=== PATIENT | male | born 1965 | race Caucasian/White ===

== ENCOUNTER 2018-03-10 23:29 | Inpatient (IN) | payer OTHER ==
[2018-03-11] MEDS ORDERED: NACL 0.9% 3 ML SYG IV (00:30)
[2018-03-11] MEDS ORDERED: ONDANSETRON 4 MG INJ IV (00:30)
[2018-03-11] MEDS ORDERED: ACETAMINOPHEN 325 MG TAB PO (00:30)
[2018-03-11] MEDS: morphine 2 MG INJ IV ×4 (00:38→20:16)
[2018-03-11 00:42] LABS: ADD MAN DIFF? NO; HAAIG REFLEX REFLEX FILED
[2018-03-11] MEDS: SOD CHLORIDE 0.9% 1,000 ML IV (00:44)
[2018-03-11 00:49] LABS: BASOPHILS % 0.2 % (0.0-2.0); HEMATOCRIT 46.4 % (42.0-52.0); HEMOGLOBIN 14.8 g/dl (14.0-18.0); LYMPHOCYTES # 0.7 10^3/ul (0.8-2.9); LYMPHOCYTES % 6.2 % (15.0-51.0); MEAN CORPUSCULAR HEMOGLOBIN 29.4 pg (29.0-33.0); MEAN CORPUSCULAR HGB CONC 31.9 g/dl (32.0-37.0); MEAN CORPUSCULAR VOLUME 92.2 fl (82.0-101.0); MEAN PLATELET VOLUME 10.3 fl (7.4-10.4); MONOCYTE # 0.3 10^3/ul (0.3-0.9); MONOCYTES % 2.5 % (0.0-11.0); NEUTROPHIL # 9.8 10^3/ul (1.6-7.5); NEUTROPHILS % 89.6 % (39.0-77.0); PLATELET COUNT 254 10^3/UL (140-415); RED BLOOD COUNT 5.03 10^6/ul (4.70-6.10)
[2018-03-11 00:49] LABS: WHITE BLOOD COUNT 10.9 10^3/ul (4.8-10.8)
[2018-03-11 01:13] LABS: ALBUMIN 3.3 g/dl (3.3-4.9); ALBUMIN/GLOBULIN RATIO 1.83; ALKALINE PHOSPHATASE 65 IU/L (42-121); ANION GAP 10 (5-13); ASPARTATE AMINO TRANSFERASE 647 IU/L (15-46); BILIRUBIN,INDIRECT 0.6 mg/dl (0-1.1); BILIRUBIN,TOTAL 0.6 mg/dl (0.2-1.3); BLOOD UREA NITROGEN 50 mg/dl (7-20); CALCIUM 8.6 mg/dl (8.4-10.2); CARBON DIOXIDE 26 mmol/L (21-31); CHLORIDE 99 mmol/L (97-110); CREATINE KINASE 198 IU/L (23-200); CREATININE 1.59 mg/dl (0.61-1.24); Estimated GFR 46 mL/min (>60); GLUCOSE 128 mg/dl (70-220); MAGNESIUM 2.1 mg/dl (1.7-2.5); POTASSIUM 5.1 mmol/L (3.5-5.1); SODIUM 135 mmol/L (135-144); TOTAL PROTEIN 5.1 g/dl (6.1-8.1)
[2018-03-11 01:20] LABS: ALANINE AMINOTRANSFERASE 1026 IU/L (13-69)
[2018-03-11 01:24] LABS: B-TYPE NATRIURETIC PEPTIDE 6420 PG/ML (0-125); CK INDEX 5.7
[2018-03-11 01:43] LABS: HEPATITIS B SURFACE ANTIGEN NEGATIVE (NEGATIVE)
[2018-03-11 02:00] LABS: HEPATITIS B CORE ANTIBODY NEGATIVE (NEGATIVE)
[2018-03-11 02:09] LABS: HEPATITIS C VIRAL ANTIBODY REACTIVE (NEGATIVE)
[2018-03-11 02:12] LABS: HEPATITIS B SURFACE ANTIBODY NEGATIVE (NEGATIVE)
[2018-03-11 03:40] LABS: ETHANOL < 10.0 mg/dl (0-0)
[2018-03-11 08:11] LABS: ADD MAN DIFF? NO
[2018-03-11 08:20] LABS: WHITE BLOOD COUNT 8.5 10^3/ul (4.8-10.8)
[2018-03-11 08:20] LABS: ABNORMAL IP MESSAGE 1; BASOPHILS % 0.1 % (0.0-2.0); HEMATOCRIT 44.9 % (42.0-52.0); HEMOGLOBIN 14.2 g/dl (14.0-18.0); LYMPHOCYTES # 0.6 10^3/ul (0.8-2.9); LYMPHOCYTES % 6.7 % (15.0-51.0); MEAN CORPUSCULAR HEMOGLOBIN 29.3 pg (29.0-33.0); MEAN CORPUSCULAR HGB CONC 31.6 g/dl (32.0-37.0); MEAN CORPUSCULAR VOLUME 92.8 fl (82.0-101.0); MEAN PLATELET VOLUME 10.4 fl (7.4-10.4); MONOCYTE # 0.3 10^3/ul (0.3-0.9); MONOCYTES % 3.5 % (0.0-11.0); NEUTROPHIL # 7.5 10^3/ul (1.6-7.5); NEUTROPHILS % 88.5 % (39.0-77.0); PLATELET COUNT 235 10^3/UL (140-415); POSITIVE DIFF @See below; RED BLOOD COUNT 4.84 10^6/ul (4.70-6.10)
[2018-03-11 08:46] LABS: ALANINE AMINOTRANSFERASE 877 IU/L (13-69); ALBUMIN 3.1 g/dl (3.3-4.9); ALBUMIN/GLOBULIN RATIO 1.63; ALKALINE PHOSPHATASE 66 IU/L (42-121); ANION GAP 9 (5-13); ASPARTATE AMINO TRANSFERASE 433 IU/L (15-46); BILIRUBIN,INDIRECT 0.7 mg/dl (0-1.1); BILIRUBIN,TOTAL 0.7 mg/dl (0.2-1.3); BLOOD UREA NITROGEN 48 mg/dl (7-20); CALCIUM 8.5 mg/dl (8.4-10.2); CARBON DIOXIDE 28 mmol/L (21-31); CHLORIDE 99 mmol/L (97-110); CREATININE 1.57 mg/dl (0.61-1.24); Estimated GFR 47 mL/min (>60); GLUCOSE 128 mg/dl (70-220); POTASSIUM 5.1 mmol/L (3.5-5.1); SODIUM 136 mmol/L (135-144)
[2018-03-11] MEDS: CEFTRIAXONE 2 GM/50 ML (PMX) 50 ML IVPB (09:28)
[2018-03-11] MEDS: FUROSEMIDE 40 MG INJ IV ×4 (09:30→20:15)
[2018-03-11 09:37] LABS: BARBITURATES Negative (NEGATIVE); BENZODIAZEPINES Negative (NEGATIVE); CANNABINOIDS Negative (NEGATIVE); COCAINE Negative (NEGATIVE); OPIATES Positive (NEGATIVE)
[2018-03-11 09:43] LABS: AMPHETAMINE/METHAMPHETAMINE POSITIVE (NEGATIVE)
[2018-03-11] MEDS ORDERED: ALBUTEROL/IPRATROPIUM (NEB) 3 ML AMP HHN (10:00)
[2018-03-11 11:09] LABS: HEMOGLOBIN A1C 5.6 % (0-5.9)
[2018-03-11 11:20] LABS: CREATINE KINASE 141 IU/L (23-200)
[2018-03-11 11:32] LABS: CK INDEX 6.8; TROPONIN-I 0.045 ng/ml (0.000-0.120)
[2018-03-11 11:34] LABS: INR 1.35; PROTIME 16.9 Sec (11.9-14.9); PT RATIO 1.3
[2018-03-11 11:35] LABS: PARTIAL THROMBOPLASTIN TIME 27.5 Sec (23.0-35.0)
[2018-03-11 11:51] LABS: CK-MB 9.54 ng/ml (0.0-2.4)
[2018-03-11] MEDS ORDERED: FUROSEMIDE 40 MG INJ IV (14:00)
[2018-03-11] MEDS: ALBUTEROL/IPRATROPIUM (NEB) 3 ML AMP HHN ×2 (14:07→20:35)
[2018-03-11] MEDS ORDERED: NICOTINE (14 MG/24 HR) PATCH TRANSDERM (15:00)
[2018-03-11] MEDS: NICOTINE (7 MG/24 HR) PATCH TRANSDERM (16:47)
[2018-03-11] MEDS ORDERED: LORAZEPAM 2 MG INJ IM (20:30)
[2018-03-12] MEDS: morphine 2 MG INJ IV ×3 (04:07→22:17)
[2018-03-12] MEDS: CEFTRIAXONE 2 GM/50 ML (PMX) 50 ML IVPB (05:32)
[2018-03-12] MEDS: FUROSEMIDE 40 MG INJ IV ×3 (05:34→22:17)
[2018-03-12 07:08] LABS: ADD MAN DIFF? NO
[2018-03-12 07:19] LABS: BASOPHILS % 0.1 % (0.0-2.0); EOSINOPHILS % 0.2 % (0.0-7.0); HEMATOCRIT 46.1 % (42.0-52.0); HEMOGLOBIN 14.2 g/dl (14.0-18.0); LYMPHOCYTES # 1.2 10^3/ul (0.8-2.9); LYMPHOCYTES % 7.1 % (15.0-51.0); MEAN CORPUSCULAR HEMOGLOBIN 28.6 pg (29.0-33.0); MEAN CORPUSCULAR HGB CONC 30.8 g/dl (32.0-37.0); MEAN CORPUSCULAR VOLUME 92.9 fl (82.0-101.0); MEAN PLATELET VOLUME 10.6 fl (7.4-10.4); MONOCYTE # 1.4 10^3/ul (0.3-0.9); MONOCYTES % 8.1 % (0.0-11.0); NEUTROPHIL # 14.1 10^3/ul (1.6-7.5); NEUTROPHILS % 83.4 % (39.0-77.0); PLATELET COUNT 257 10^3/UL (140-415); RED BLOOD COUNT 4.96 10^6/ul (4.70-6.10); RED CELL DISTRIBUTION WIDTH 13.2 % (11.5-14.5)
[2018-03-12 07:19] LABS: WHITE BLOOD COUNT 16.9 10^3/ul (4.8-10.8)
[2018-03-12] MEDS: ALBUTEROL/IPRATROPIUM (NEB) 3 ML AMP HHN ×3 (07:21→19:43)
[2018-03-12 07:28] LABS: HEMOGLOBIN A1C 5.7 % (0-5.9)
[2018-03-12 07:32] LABS: AMMONIA 18 umol/l (9-30)
[2018-03-12 07:33] LABS: ALANINE AMINOTRANSFERASE 648 IU/L (13-69); ALBUMIN 3.5 g/dl (3.3-4.9); ALBUMIN/GLOBULIN RATIO 1.66; ALKALINE PHOSPHATASE 109 IU/L (42-121); ANION GAP 10 (5-13); ASPARTATE AMINO TRANSFERASE 171 IU/L (15-46); BILIRUBIN,INDIRECT 0.3 mg/dl (0-1.1); BILIRUBIN,TOTAL 0.3 mg/dl (0.2-1.3); BLOOD UREA NITROGEN 46 mg/dl (7-20); CALCIUM 8.8 mg/dl (8.4-10.2); CARBON DIOXIDE 35 mmol/L (21-31); CHLORIDE 96 mmol/L (97-110); CREATININE 1.46 mg/dl (0.61-1.24); Estimated GFR 51 mL/min (>60); GLUCOSE 120 mg/dl (70-220); POTASSIUM 4.1 mmol/L (3.5-5.1); SODIUM 141 mmol/L (135-144); TOTAL PROTEIN 5.6 g/dl (6.1-8.1)
[2018-03-12 07:34] LABS: CHOL/HDL RATIO 4.8 RATIO; HDL CHOLESTEROL 27 mg/dl (28-71); LDL CHOLESTEROL,CALCULATED 83 mg/dl; TRIGLYCERIDES 103 mg/dl (0-149)
[2018-03-12 07:34] LABS: CHOLESTEROL 131 mg/dl (100-200)
[2018-03-12 07:41] LABS: PHOSPHORUS 3.7 mg/dl (2.5-4.9)
[2018-03-12 07:41] LABS: MAGNESIUM 1.9 mg/dl (1.7-2.5)
[2018-03-12] MEDS: NICOTINE (7 MG/24 HR) PATCH TRANSDERM (08:30)
[2018-03-12 16:41] LABS: ADD UMIC NO; UR ASCORBIC ACID NEGATIVE (NEGATIVE); UR BILIRUBIN (Dip) NEGATIVE (NEGATIVE); UR BLOOD (Dip) NEGATIVE (NEGATIVE); UR CLARITY CLEAR (CLEAR); UR COLOR COLORLESS (YELLOW); UR GLUCOSE (Dip) NEGATIVE (NEGATIVE); UR KETONES (Dip) NEGATIVE (NEGATIVE); UR LEUKOCYTE ESTERASE (Dip) NEGATIVE Leu/ul (NEGATIVE); UR NITRITE (Dip) NEGATIVE (NEGATIVE); UR SPECIFIC GRAVITY (Dip) 1.005 (1.003-1.030); UR TOTAL PROTEIN (Dip) NEGATIVE (NEGATIVE); UR UROBILINOGEN (Dip) 1+ mg/dL (NEGATIVE)
[2018-03-13 01:45] LABS: ANION GAP 10 (5-13); BLOOD UREA NITROGEN 41 mg/dl (7-20); CALCIUM 8.5 mg/dl (8.4-10.2); CARBON DIOXIDE 34 mmol/L (21-31); CHLORIDE 95 mmol/L (97-110); CREATININE 1.27 mg/dl (0.61-1.24); Estimated GFR > 60 mL/min (>60); GLUCOSE 161 mg/dl (70-220); MAGNESIUM 1.6 mg/dl (1.7-2.5); POTASSIUM 3.8 mmol/L (3.5-5.1); SODIUM 139 mmol/L (135-144)
[2018-03-13] MEDS: POTASSIUM CHLORIDE (SR) 20 MEQ TAB PO (02:32)
[2018-03-13] MEDS: MAGNESIUM SULFATE 3 GM in DEXTROSE 5% 100 ML IVPB (02:43)
[2018-03-13] MEDS: morphine 2 MG INJ IV ×2 (04:11→11:26)
[2018-03-13 06:27] LABS: ADD MAN DIFF? NO; EOSINOPHILS # 0.2 10^3/ul (0.0-0.5); EOSINOPHILS % 1.4 % (0.0-7.0); HEMATOCRIT 44.1 % (42.0-52.0); HEMOGLOBIN 13.7 g/dl (14.0-18.0); LYMPHOCYTES # 2.1 10^3/ul (0.8-2.9); LYMPHOCYTES % 18.7 % (15.0-51.0); MEAN CORPUSCULAR HEMOGLOBIN 29.2 pg (29.0-33.0); MEAN CORPUSCULAR HGB CONC 31.1 g/dl (32.0-37.0); MEAN PLATELET VOLUME 10.4 fl (7.4-10.4); MONOCYTE # 0.9 10^3/ul (0.3-0.9); NEUTROPHIL # 7.9 10^3/ul (1.6-7.5); NEUTROPHILS % 70.9 % (39.0-77.0); PLATELET COUNT 208 10^3/UL (140-415); RED BLOOD COUNT 4.69 10^6/ul (4.70-6.10); RED CELL DISTRIBUTION WIDTH 13.4 % (11.5-14.5)
[2018-03-13 06:27] LABS: WHITE BLOOD COUNT 11.2 10^3/ul (4.8-10.8)
[2018-03-13 06:50] LABS: ALANINE AMINOTRANSFERASE 436 IU/L (13-69); ALBUMIN 3.3 g/dl (3.3-4.9); ALBUMIN/GLOBULIN RATIO 1.73; ALKALINE PHOSPHATASE 135 IU/L (42-121); ANION GAP 9 (5-13); ASPARTATE AMINO TRANSFERASE 94 IU/L (15-46); BILIRUBIN,INDIRECT 0.3 mg/dl (0-1.1); BILIRUBIN,TOTAL 0.3 mg/dl (0.2-1.3); BLOOD UREA NITROGEN 40 mg/dl (7-20); CALCIUM 8.3 mg/dl (8.4-10.2); CARBON DIOXIDE 33 mmol/L (21-31); CHLORIDE 98 mmol/L (97-110); CREATININE 1.17 mg/dl (0.61-1.24); Estimated GFR > 60 mL/min (>60); GLUCOSE 142 mg/dl (70-220); POTASSIUM 3.7 mmol/L (3.5-5.1); SODIUM 140 mmol/L (135-144); TOTAL PROTEIN 5.2 g/dl (6.1-8.1)
[2018-03-13 06:51] LABS: PHOSPHORUS 3.1 mg/dl (2.5-4.9)
[2018-03-13] MEDS: FUROSEMIDE 40 MG INJ IV (07:04)
[2018-03-13] MEDS: CEFTRIAXONE 2 GM/50 ML (PMX) 50 ML IVPB (07:05)
[2018-03-13] MEDS: ALBUTEROL/IPRATROPIUM (NEB) 3 ML AMP HHN ×2 (08:56→14:00)
[2018-03-13] MEDS: NICOTINE (7 MG/24 HR) PATCH TRANSDERM (09:32)
[2018-03-13] MEDS: ENALAPRIL 2.5 MG TAB PO (11:00)
== END 2018-03-13 14:40 | disposition home or self-care (01) | DRG 291 ==
LOC: TEL 23:29
DX: I13.0 Hypertensive heart and chronic kidney disease with heart failure and stage 1 through stage 4 chronic kidney disease, or unspecified chronic kidney disease (principal); J96.01 Acute respiratory failure with hypoxia; I50.43 Acute on chronic combined systolic (congestive) and diastolic (congestive) heart failure; R18.8 Other ascites; N17.9 Acute kidney failure, unspecified; J44.9 Chronic obstructive pulmonary disease, unspecified; I42.7 Cardiomyopathy due to drug and external agent; B19.20 Unspecified viral hepatitis C without hepatic coma; R74.0 Nonspecific elevation of levels of transaminase and lactic acid dehydrogenase [LDH]; E66.9 Obesity, unspecified; Z68.35 Body mass index [BMI] 35.0-35.9, adult; Z72.0 Tobacco use; F15.10 Other stimulant abuse, uncomplicated; K74.60 Unspecified cirrhosis of liver; I27.20 Pulmonary hypertension, unspecified; N18.9 Chronic kidney disease, unspecified
CPT/HCPCS: 71045; 76705; 76775; 80048; 80053; 80061; 80307; 81003; 82140; 82550; 82553; 83036; 83735; 83880; 84100; 84443; 84484; 85025; 85610; 85730; 86704; 86706; 86708; 86709; 86803; 87340; 87522; 93306; 94640; 94664

== ENCOUNTER 2018-05-27 14:28 | Inpatient (IN) | payer OTHER ==
[2018-05-27] MEDS ORDERED: NITROGLYCERIN (SL) 0.4 MG TAB SL ×2 (15:00→18:30)
[2018-05-27 15:09] LABS: ADD MAN DIFF? NO
[2018-05-27] MEDS: ASPIRIN 81 MG TAB PO (15:10)
[2018-05-27] MEDS: NITROGLYCERIN 2% 1 GM OINT PKT TD (15:10)
[2018-05-27 15:11] LABS: BASOPHIL # 0.1 10^3/ul (0.0-0.1); BASOPHILS % 0.5 % (0.0-2.0); EOSINOPHILS # 0.2 10^3/ul (0.0-0.5); EOSINOPHILS % 1.8 % (0.0-7.0); HEMATOCRIT 48.3 % (42.0-52.0); HEMOGLOBIN 14.7 g/dl (14.0-18.0); LYMPHOCYTES # 1.8 10^3/ul (0.8-2.9); LYMPHOCYTES % 19.1 % (15.0-51.0); MEAN CORPUSCULAR HEMOGLOBIN 25.9 pg (29.0-33.0); MEAN CORPUSCULAR HGB CONC 30.4 g/dl (32.0-37.0); MEAN PLATELET VOLUME 10.5 fl (7.4-10.4); MONOCYTE # 1.1 10^3/ul (0.3-0.9); NEUTROPHIL # 6.4 10^3/ul (1.6-7.5); NEUTROPHILS % 67.1 % (39.0-77.0); PLATELET COUNT 289 10^3/UL (140-415); RED BLOOD COUNT 5.68 10^6/ul (4.70-6.10); RED CELL DISTRIBUTION WIDTH 14.6 % (11.5-14.5)
[2018-05-27 15:11] LABS: WHITE BLOOD COUNT 9.5 10^3/ul (4.8-10.8)
[2018-05-27] MEDS: FUROSEMIDE 40 MG INJ IV (15:11)
[2018-05-27 15:30] LABS: ANION GAP 13 (5-13); BLOOD UREA NITROGEN 41 mg/dl (7-20); CALCIUM 9.5 mg/dl (8.4-10.2); CARBON DIOXIDE 23 mmol/L (21-31); CHLORIDE 99 mmol/L (97-110); CREATININE 1.59 mg/dl (0.61-1.24); Estimated GFR 46 mL/min (>60); GLUCOSE 112 mg/dl (70-220); POTASSIUM 4.3 mmol/L (3.5-5.1); SODIUM 135 mmol/L (135-144)
[2018-05-27 15:41] LABS: TROPONIN-I 0.062 ng/ml (0.000-0.120)
[2018-05-27] MEDS: CEFEPIME 1GM/50 ML (PMX) 50 ML IVPB (16:17)
[2018-05-27] MEDS ORDERED: ACETAMINOPHEN 325 MG TAB PO ×2 (16:30→18:30)
[2018-05-27] MEDS ORDERED: ONDANSETRON 4 MG INJ IV ×2 (16:30→18:30)
[2018-05-27] MEDS: VANCOMYCIN 1 GM (PMX) 250 ML IVPB (17:22)
[2018-05-27] MEDS ORDERED: DOCUSATE SODIUM 100 MG CAP PO (18:30)
[2018-05-27] MEDS ORDERED: hydrALAzine 20 MG INJ IV (18:30)
[2018-05-27] MEDS ORDERED: MAGNESIUM HYDROXIDE 30ML CUP PO (18:30)
[2018-05-27] MEDS ORDERED: NACL 0.9% 3 ML SYG IV (18:30)
[2018-05-27] MEDS ORDERED: ALBUTEROL/IPRATROPIUM (NEB) 3 ML AMP HHN (18:30)
[2018-05-27 18:56] LABS: LACTIC ACID 2.4 mmol/L (0.5-2.0)
[2018-05-27] MEDS: SPIRONOLACTONE 50 MG TAB PO (20:33)
[2018-05-27] MEDS: LEVOFLOXACIN 750MG/D5W (PMX) 150 ML IVPB (20:33)
[2018-05-27] MEDS: morphine 2 MG INJ IV (20:33)
[2018-05-28] MEDS: morphine 2 MG INJ IV ×5 (00:50→23:53)
[2018-05-28 01:16] LABS: LACTIC ACID 1.3 mmol/L (0.5-2.0)
[2018-05-28] MEDS: ALBUTEROL HFA 8 GM INHALER INH ×5 (01:24→23:05)
[2018-05-28 01:44] LABS: CREATINE KINASE 282 IU/L (23-200)
[2018-05-28 01:57] LABS: CK INDEX 2.1; TROPONIN-I 0.065 ng/ml (0.000-0.120)
[2018-05-28] MEDS: PANTOPRAZOLE (EC) 40 MG TAB PO (06:21)
[2018-05-28] MEDS: FUROSEMIDE 40 MG INJ IV ×2 (06:27→17:14)
[2018-05-28 06:42] LABS: ADD MAN DIFF? NO
[2018-05-28 06:48] LABS: BASOPHILS % 0.6 % (0.0-2.0); EOSINOPHILS # 0.2 10^3/ul (0.0-0.5); EOSINOPHILS % 2.6 % (0.0-7.0); HEMATOCRIT 47.1 % (42.0-52.0); HEMOGLOBIN 14.3 g/dl (14.0-18.0); LYMPHOCYTES # 1.5 10^3/ul (0.8-2.9); LYMPHOCYTES % 21.4 % (15.0-51.0); MEAN CORPUSCULAR HEMOGLOBIN 25.4 pg (29.0-33.0); MEAN CORPUSCULAR HGB CONC 30.4 g/dl (32.0-37.0); MEAN CORPUSCULAR VOLUME 83.8 fl (82.0-101.0); MEAN PLATELET VOLUME 10.1 fl (7.4-10.4); MONOCYTE # 0.7 10^3/ul (0.3-0.9); MONOCYTES % 9.8 % (0.0-11.0); NEUTROPHIL # 4.7 10^3/ul (1.6-7.5); NEUTROPHILS % 65.2 % (39.0-77.0); PLATELET COUNT 260 10^3/UL (140-415); RED BLOOD COUNT 5.62 10^6/ul (4.70-6.10); RED CELL DISTRIBUTION WIDTH 14.5 % (11.5-14.5)
[2018-05-28 06:48] LABS: WHITE BLOOD COUNT 7.2 10^3/ul (4.8-10.8)
[2018-05-28 07:04] LABS: INR 1.33; PROTIME 16.6 Sec (11.9-14.9); PT RATIO 1.3
[2018-05-28 07:54] LABS: LACTIC ACID 1.3 mmol/L (0.5-2.0)
[2018-05-28 07:56] LABS: CREATINE KINASE 205 IU/L (23-200)
[2018-05-28 08:02] LABS: CK INDEX 3.5; TROPONIN-I 0.065 ng/ml (0.000-0.120)
[2018-05-28 08:22] LABS: ANION GAP 11 (5-13); BLOOD UREA NITROGEN 39 mg/dl (7-20); CALCIUM 9.9 mg/dl (8.4-10.2); CARBON DIOXIDE 27 mmol/L (21-31); CHLORIDE 99 mmol/L (97-110); CREATININE 1.55 mg/dl (0.61-1.24); Estimated GFR 48 mL/min (>60); GLUCOSE 98 mg/dl (70-220); POTASSIUM 4.3 mmol/L (3.5-5.1); SODIUM 137 mmol/L (135-144)
[2018-05-28 09:26] LABS: CHOL/HDL RATIO 6.5 RATIO; HDL CHOLESTEROL 15 mg/dl (28-71); LDL CHOLESTEROL,CALCULATED 66 mg/dl; TRIGLYCERIDES 86 mg/dl (0-149)
[2018-05-28 09:26] LABS: CHOLESTEROL 98 mg/dl (100-200)
[2018-05-28] MEDS: SPIRONOLACTONE 50 MG TAB PO ×2 (09:27→20:31)
[2018-05-28] MEDS: ASPIRIN (EC) 325 MG TAB PO (09:27)
[2018-05-28] MEDS: LORAZEPAM 2 MG INJ IV ×2 (10:29→23:53)
[2018-05-28] MEDS: HYDROCODONE/APAP (5/325) TAB PO (11:21)
[2018-05-28] MEDS: DIGOXIN 500 MCG INJ IV (15:52)
[2018-05-28] MEDS: LEVOFLOXACIN 750MG/D5W (PMX) 150 ML IVPB (20:31)
[2018-05-29] MEDS: FUROSEMIDE 40 MG INJ IV ×2 (06:16→17:46)
[2018-05-29] MEDS: PANTOPRAZOLE (EC) 40 MG TAB PO (06:16)
[2018-05-29] MEDS: ALBUTEROL HFA 8 GM INHALER INH ×3 (06:16→17:46)
[2018-05-29] MEDS: morphine 2 MG INJ IV ×3 (06:21→21:06)
[2018-05-29 06:28] LABS: ADD MAN DIFF? NO
[2018-05-29 06:43] LABS: BASOPHILS % 0.4 % (0.0-2.0); EOSINOPHILS # 0.2 10^3/ul (0.0-0.5); EOSINOPHILS % 2.5 % (0.0-7.0); HEMATOCRIT 43.6 % (42.0-52.0); HEMOGLOBIN 13.2 g/dl (14.0-18.0); LYMPHOCYTES % 15.3 % (15.0-51.0); MEAN CORPUSCULAR HEMOGLOBIN 25.5 pg (29.0-33.0); MEAN CORPUSCULAR HGB CONC 30.3 g/dl (32.0-37.0); MEAN CORPUSCULAR VOLUME 84.3 fl (82.0-101.0); MEAN PLATELET VOLUME 10.1 fl (7.4-10.4); MONOCYTE # 0.7 10^3/ul (0.3-0.9); MONOCYTES % 10.5 % (0.0-11.0); NEUTROPHIL # 4.8 10^3/ul (1.6-7.5); NEUTROPHILS % 70.9 % (39.0-77.0); PLATELET COUNT 220 10^3/UL (140-415); RED BLOOD COUNT 5.17 10^6/ul (4.70-6.10); RED CELL DISTRIBUTION WIDTH 14.6 % (11.5-14.5)
[2018-05-29 06:43] LABS: WHITE BLOOD COUNT 6.8 10^3/ul (4.8-10.8)
[2018-05-29 07:08] LABS: LACTIC ACID 1.5 mmol/L (0.5-2.0)
[2018-05-29 07:15] LABS: B-TYPE NATRIURETIC PEPTIDE 5790 PG/ML (0-125)
[2018-05-29 07:16] LABS: ALANINE AMINOTRANSFERASE 44 IU/L (13-69); ALBUMIN 3.7 g/dl (3.3-4.9); ALBUMIN/GLOBULIN RATIO 1.32; ALKALINE PHOSPHATASE 88 IU/L (42-121); ANION GAP 15 (5-13); ASPARTATE AMINO TRANSFERASE 49 IU/L (15-46); BILIRUBIN,INDIRECT 0.6 mg/dl (0-1.1); BILIRUBIN,TOTAL 0.6 mg/dl (0.2-1.3); BLOOD UREA NITROGEN 37 mg/dl (7-20); CALCIUM 9.2 mg/dl (8.4-10.2); CARBON DIOXIDE 26 mmol/L (21-31); CHLORIDE 97 mmol/L (97-110); CREATININE 1.57 mg/dl (0.61-1.24); Estimated GFR 47 mL/min (>60); GLUCOSE 129 mg/dl (70-220); MAGNESIUM 1.9 mg/dl (1.7-2.5); POTASSIUM 4.3 mmol/L (3.5-5.1); SODIUM 138 mmol/L (135-144); TOTAL PROTEIN 6.5 g/dl (6.1-8.1)
[2018-05-29 07:28] LABS: FREE T4 (FREE THYROXINE) 1.72 ng/dl (0.64-1.79)
[2018-05-29] MEDS: SPIRONOLACTONE 50 MG TAB PO ×2 (08:29→21:00)
[2018-05-29] MEDS: ASPIRIN (EC) 325 MG TAB PO (08:29)
[2018-05-29] MEDS: DIGOXIN 0.125 MG TAB PO (12:23)
[2018-05-29] MEDS: LORAZEPAM 2 MG INJ IV (21:05)
[2018-05-29] MEDS: LEVOFLOXACIN 750MG/D5W (PMX) 150 ML IVPB (21:21)
[2018-05-29 22:59] LABS: ALBUMIN 3.7 g/dl (3.3-4.9); ANION GAP 15 (5-13); BLOOD UREA NITROGEN 35 mg/dl (7-20); CALCIUM 9.3 mg/dl (8.4-10.2); CARBON DIOXIDE 26 mmol/L (21-31); CHLORIDE 95 mmol/L (97-110); CREATINE KINASE 102 IU/L (23-200); CREATININE 1.45 mg/dl (0.61-1.24); GLUCOSE 122 mg/dl (70-220); MAGNESIUM 1.7 mg/dl (1.7-2.5); POTASSIUM 4.5 mmol/L (3.5-5.1); SODIUM 136 mmol/L (135-144)
[2018-05-30] MEDS: ALBUTEROL HFA 8 GM INHALER INH ×4 (00:03→18:19)
[2018-05-30] MEDS: LORAZEPAM 2 MG INJ IV ×2 (04:25→21:23)
[2018-05-30] MEDS: morphine 2 MG INJ IV ×4 (04:26→21:22)
[2018-05-30] MEDS: FUROSEMIDE 40 MG INJ IV (06:07)
[2018-05-30] MEDS: PANTOPRAZOLE (EC) 40 MG TAB PO (06:08)
[2018-05-30 07:44] LABS: ADD MAN DIFF? NO
[2018-05-30 07:52] LABS: WHITE BLOOD COUNT 7.8 10^3/ul (4.8-10.8)
[2018-05-30 07:53] LABS: BASOPHILS % 0.3 % (0.0-2.0); EOSINOPHILS # 0.2 10^3/ul (0.0-0.5); EOSINOPHILS % 2.1 % (0.0-7.0); HEMATOCRIT 44.2 % (42.0-52.0); HEMOGLOBIN 13.3 g/dl (14.0-18.0); LYMPHOCYTES % 12.5 % (15.0-51.0); MEAN CORPUSCULAR HEMOGLOBIN 25.6 pg (29.0-33.0); MEAN CORPUSCULAR HGB CONC 30.1 g/dl (32.0-37.0); MEAN CORPUSCULAR VOLUME 85.2 fl (82.0-101.0); MEAN PLATELET VOLUME 9.9 fl (7.4-10.4); MONOCYTE # 0.6 10^3/ul (0.3-0.9); MONOCYTES % 8.2 % (0.0-11.0); NEUTROPHILS % 76.5 % (39.0-77.0); PLATELET COUNT 217 10^3/UL (140-415); RED BLOOD COUNT 5.19 10^6/ul (4.70-6.10); RED CELL DISTRIBUTION WIDTH 14.9 % (11.5-14.5)
[2018-05-30 08:12] LABS: ANION GAP 14 (5-13); BLOOD UREA NITROGEN 34 mg/dl (7-20); CALCIUM 9.3 mg/dl (8.4-10.2); CARBON DIOXIDE 29 mmol/L (21-31); CHLORIDE 95 mmol/L (97-110); CREATININE 1.52 mg/dl (0.61-1.24); Estimated GFR 49 mL/min (>60); GLUCOSE 108 mg/dl (70-220); POTASSIUM 4.3 mmol/L (3.5-5.1); SODIUM 138 mmol/L (135-144)
[2018-05-30] MEDS: ASPIRIN (EC) 325 MG TAB PO (10:04)
[2018-05-30] MEDS: SPIRONOLACTONE 50 MG TAB PO ×2 (10:04→21:10)
[2018-05-30] MEDS: LISINOPRIL 5 MG TAB PO (10:05)
[2018-05-30] MEDS: BUMETANIDE 3 MG in DEXTROSE 5% 18 ML IV (10:05)
[2018-05-30] MEDS: DIGOXIN 0.125 MG TAB PO (14:02)
[2018-05-30] MEDS: LEVOFLOXACIN 750MG/D5W (PMX) 150 ML IVPB (21:09)
[2018-05-31] MEDS: ALBUTEROL HFA 8 GM INHALER INH ×3 (02:10→08:26)
[2018-05-31] MEDS: morphine 2 MG INJ IV ×2 (02:24→08:25)
[2018-05-31] MEDS: PANTOPRAZOLE (EC) 40 MG TAB PO (05:30)
[2018-05-31] MEDS: ASPIRIN (EC) 325 MG TAB PO (08:25)
[2018-05-31] MEDS: LISINOPRIL 5 MG TAB PO (08:25)
[2018-05-31] MEDS: SPIRONOLACTONE 50 MG TAB PO (08:25)
[2018-05-31 08:30] LABS: ADD MAN DIFF? NO
[2018-05-31 08:40] LABS: BASOPHILS % 0.5 % (0.0-2.0); EOSINOPHILS # 0.2 10^3/ul (0.0-0.5); EOSINOPHILS % 3.1 % (0.0-7.0); HEMATOCRIT 42.4 % (42.0-52.0); LYMPHOCYTES % 13.4 % (15.0-51.0); MEAN CORPUSCULAR HEMOGLOBIN 25.8 pg (29.0-33.0); MEAN CORPUSCULAR HGB CONC 30.7 g/dl (32.0-37.0); MEAN CORPUSCULAR VOLUME 84.1 fl (82.0-101.0); MEAN PLATELET VOLUME 10.2 fl (7.4-10.4); MONOCYTES % 12.4 % (0.0-11.0); NEUTROPHIL # 5.4 10^3/ul (1.6-7.5); NEUTROPHILS % 70.1 % (39.0-77.0); PLATELET COUNT 213 10^3/UL (140-415); RED BLOOD COUNT 5.04 10^6/ul (4.70-6.10)
[2018-05-31 08:40] LABS: WHITE BLOOD COUNT 7.7 10^3/ul (4.8-10.8)
[2018-05-31 09:07] LABS: ANION GAP 15 (5-13); BLOOD UREA NITROGEN 33 mg/dl (7-20); CALCIUM 9.2 mg/dl (8.4-10.2); CARBON DIOXIDE 28 mmol/L (21-31); CHLORIDE 93 mmol/L (97-110); CREATININE 1.28 mg/dl (0.61-1.24); Estimated GFR 59 mL/min (>60); GLUCOSE 95 mg/dl (70-220); POTASSIUM 4.5 mmol/L (3.5-5.1); SODIUM 136 mmol/L (135-144)
== END 2018-05-31 13:47 | disposition home or self-care (01) | DRG 291 ==
LOC: TEL 05-29 21:00 → E/R 14:28 → TEL 16:29
DX: I11.0 Hypertensive heart disease with heart failure (principal); J18.9 Pneumonia, unspecified organism; I50.23 Acute on chronic systolic (congestive) heart failure; K74.60 Unspecified cirrhosis of liver; R19.00 Intra-abdominal and pelvic swelling, mass and lump, unspecified site; Z72.0 Tobacco use; R07.9 Chest pain, unspecified; B19.20 Unspecified viral hepatitis C without hepatic coma; F15.10 Other stimulant abuse, uncomplicated; Z91.19 Patient's noncompliance with other medical treatment and regimen; E78.5 Hyperlipidemia, unspecified
CPT/HCPCS: 36415; 71045; 76705; 76870; 80048; 80053; 80061; 80069; 82550; 82553; 83036; 83605; 83735; 83880; 84100; 84439; 84443; 84484; 85025; 85610; 87040; 93005; 96374; 96375; 97161; 99291-25

== ENCOUNTER 2018-06-28 21:37 | Inpatient (IN) | payer OTHER ==
[2018-06-28 22:48] LABS: ADD MAN DIFF? NO
[2018-06-28] MEDS: ACETAMINOPHEN 325 MG TAB PO (22:50)
[2018-06-28 22:59] LABS: BASOPHILS % 0.2 % (0.0-2.0); EOSINOPHILS # 0.1 10^3/ul (0.0-0.5); EOSINOPHILS % 0.8 % (0.0-7.0); HEMATOCRIT 46.3 % (42.0-52.0); LYMPHOCYTES # 1.3 10^3/ul (0.8-2.9); MEAN CORPUSCULAR HEMOGLOBIN 24.1 pg (29.0-33.0); MEAN CORPUSCULAR HGB CONC 30.2 g/dl (32.0-37.0); MEAN CORPUSCULAR VOLUME 79.8 fl (82.0-101.0); MEAN PLATELET VOLUME 10.1 fl (7.4-10.4); MONOCYTE # 1.1 10^3/ul (0.3-0.9); MONOCYTES % 8.6 % (0.0-11.0); NEUTROPHIL # 10.5 10^3/ul (1.6-7.5); NEUTROPHILS % 79.9 % (39.0-77.0); PLATELET COUNT 164 10^3/UL (140-415); RED CELL DISTRIBUTION WIDTH 18.2 % (11.5-14.5)
[2018-06-28 22:59] LABS: WHITE BLOOD COUNT 13.2 10^3/ul (4.8-10.8)
[2018-06-28] MEDS ORDERED: SODIUM CHLORIDE 0.9% 1L BAG IV* (23:08)
[2018-06-28 23:20] LABS: INR 1.29; PROTIME 16.2 Sec (11.9-14.9); PT RATIO 1.3
[2018-06-28 23:21] LABS: PARTIAL THROMBOPLASTIN TIME 29.1 Sec (23.0-35.0)
[2018-06-28 23:24] LABS: ALANINE AMINOTRANSFERASE 87 IU/L (13-69); ALBUMIN 3.1 g/dl (3.3-4.9); ALBUMIN/GLOBULIN RATIO 1.24; ALKALINE PHOSPHATASE 142 IU/L (42-121); ANION GAP 12 (5-13); ASPARTATE AMINO TRANSFERASE 43 IU/L (15-46); BLOOD UREA NITROGEN 32 mg/dl (7-20); CALCIUM 8.5 mg/dl (8.4-10.2); CARBON DIOXIDE 28 mmol/L (21-31); CHLORIDE 98 mmol/L (97-110); CREATININE 1.14 mg/dl (0.61-1.24); Estimated GFR > 60 mL/min (>60); GLUCOSE 140 mg/dl (70-220); POTASSIUM 3.4 mmol/L (3.5-5.1); SODIUM 138 mmol/L (135-144); TOTAL PROTEIN 5.6 g/dl (6.1-8.1)
[2018-06-28 23:32] LABS: B-TYPE NATRIURETIC PEPTIDE 13700 PG/ML (0-125)
[2018-06-28 23:35] LABS: TROPONIN-I 0.068 ng/ml (0.000-0.120)
[2018-06-28] MEDS: CEFEPIME 2GM/50 ML (PMX) 50 ML IVPB (23:44)
[2018-06-29] MEDS: VANCOMYCIN 1 GM (PMX) 250 ML IVPB (00:20)
[2018-06-29] MEDS: morphine 4 MG/ML VIAL IV ×2 (00:33→08:22)
[2018-06-29] MEDS: ONDANSETRON 4 MG INJ IV ×2 (00:33→08:07)
[2018-06-29 00:46] LABS: ADD UMIC NO; UR ASCORBIC ACID NEGATIVE (NEGATIVE); UR BILIRUBIN (Dip) NEGATIVE (NEGATIVE); UR BLOOD (Dip) NEGATIVE (NEGATIVE); UR CLARITY CLEAR (CLEAR); UR COLOR YELLOW (YELLOW); UR GLUCOSE (Dip) NEGATIVE (NEGATIVE); UR KETONES (Dip) NEGATIVE (NEGATIVE); UR LEUKOCYTE ESTERASE (Dip) NEGATIVE Leu/ul (NEGATIVE); UR NITRITE (Dip) NEGATIVE (NEGATIVE); UR SPECIFIC GRAVITY (Dip) 1.018 (1.003-1.030); UR TOTAL PROTEIN (Dip) NEGATIVE (NEGATIVE); UR UROBILINOGEN (Dip) 2+ mg/dL (NEGATIVE)
[2018-06-29] MEDS ORDERED: VANCOMYCIN IV PER PHARMACY XX (03:00)
[2018-06-29] MEDS ORDERED: ACETAMINOPHEN 325 MG TAB PO (03:00)
[2018-06-29] MEDS ORDERED: BISACODYL (EC) 5 MG TAB PO (03:00)
[2018-06-29] MEDS ORDERED: DOCUSATE SODIUM 100 MG CAP PO (03:00)
[2018-06-29] MEDS ORDERED: NACL 0.9% 3 ML SYG IV (03:00)
[2018-06-29] MEDS: FUROSEMIDE 40 MG INJ IV ×4 (03:38→17:57)
[2018-06-29] MEDS: HYDROCODONE/APAP (5/325) TAB PO (03:48)
[2018-06-29 04:13] LABS: ADD MAN DIFF? NO
[2018-06-29 04:16] LABS: WHITE BLOOD COUNT 13.3 10^3/ul (4.8-10.8)
[2018-06-29 04:16] LABS: BASOPHILS % 0.2 % (0.0-2.0); EOSINOPHILS # 0.2 10^3/ul (0.0-0.5); EOSINOPHILS % 1.3 % (0.0-7.0); HEMATOCRIT 50.4 % (42.0-52.0); HEMOGLOBIN 14.8 g/dl (14.0-18.0); LYMPHOCYTES # 1.9 10^3/ul (0.8-2.9); LYMPHOCYTES % 14.1 % (15.0-51.0); MEAN CORPUSCULAR HEMOGLOBIN 23.8 pg (29.0-33.0); MEAN CORPUSCULAR HGB CONC 29.4 g/dl (32.0-37.0); MEAN CORPUSCULAR VOLUME 81.2 fl (82.0-101.0); MONOCYTE # 1.1 10^3/ul (0.3-0.9); MONOCYTES % 8.4 % (0.0-11.0); NEUTROPHILS % 75.4 % (39.0-77.0); PLATELET COUNT 181 10^3/UL (140-415); RED BLOOD COUNT 6.21 10^6/ul (4.70-6.10); RED CELL DISTRIBUTION WIDTH 18.6 % (11.5-14.5)
[2018-06-29 04:34] LABS: CREATINE KINASE 101 IU/L (23-200)
[2018-06-29 04:35] LABS: LACTIC ACID 1.6 mmol/L (0.5-2.0)
[2018-06-29 04:37] LABS: ALANINE AMINOTRANSFERASE 91 IU/L (13-69); ALBUMIN 3.2 g/dl (3.3-4.9); ALBUMIN/GLOBULIN RATIO 1.33; ALKALINE PHOSPHATASE 153 IU/L (42-121); ANION GAP 11 (5-13); ASPARTATE AMINO TRANSFERASE 45 IU/L (15-46); BILIRUBIN,INDIRECT 1.2 mg/dl (0-1.1); BILIRUBIN,TOTAL 1.2 mg/dl (0.2-1.3); BLOOD UREA NITROGEN 33 mg/dl (7-20); CALCIUM 8.4 mg/dl (8.4-10.2); CARBON DIOXIDE 28 mmol/L (21-31); CHLORIDE 100 mmol/L (97-110); CREATININE 1.18 mg/dl (0.61-1.24); Estimated GFR > 60 mL/min (>60); GLUCOSE 146 mg/dl (70-220); POTASSIUM 3.8 mmol/L (3.5-5.1); SODIUM 139 mmol/L (135-144); TOTAL PROTEIN 5.6 g/dl (6.1-8.1)
[2018-06-29 04:48] LABS: CK INDEX 4.5
[2018-06-29] MEDS: LEVALBUTEROL (NEB) 1.25 MG/0.5 ML AMP HHN ×2 (04:48→22:51)
[2018-06-29] MEDS ORDERED: PANTOPRAZOLE (EC) 40 MG TAB PO (04:50)
[2018-06-29 04:53] LABS: CK-MB 4.59 ng/ml (0.0-2.4)
[2018-06-29] MEDS: ALBUMIN HUMAN 25% 100 ML IV ×2 (05:09→06:48)
[2018-06-29] MEDS: POTASSIUM CHLORIDE (SR) 20 MEQ TAB PO (05:10)
[2018-06-29] MEDS: SPIRONOLACTONE 50 MG TAB PO ×3 (05:11→20:38)
[2018-06-29] MEDS: PANTOPRAZOLE (EC) 40 MG TAB PO (05:11)
[2018-06-29] MEDS: morphine 2 MG INJ IV ×3 (05:16→22:48)
[2018-06-29] MEDS: CALCIUM GLUCONATE 10% 1 GM in DEXTROSE 5% 100 ML IVPB (05:24)
[2018-06-29] MEDS ORDERED: FUROSEMIDE 40 MG INJ IV (06:00)
[2018-06-29] MEDS ORDERED: morphine 4 MG/ML VIAL (08:11)
[2018-06-29 08:15] LABS: AADO2 Arterial 240.7 mmHg (7.0-24.0); Allen Test ACCEPTAB; Arterial Base Excess -1.6 mmol/L (-3.0-3); Arterial Blood Gas Oxygen Sat 99.6 mmHG (95.0-98.0); Arterial COHb 1.3 % (0.0-3.0); Arterial Fraction of Oxyhgb 98.1 % (93.0-99.0); Arterial HCO3 22.3 mmol/L (22.0-26.0); Arterial MetHb 0.2 % (0.0-1.5); Arterial pCO2 35.6 mmhg (35-45); MODE MASK - NRB; Site Left Radial
[2018-06-29] MEDS: ENALAPRIL 2.5 MG TAB PO (09:00)
[2018-06-29] MEDS ORDERED: CEFEPIME 1GM/50 ML (PMX) 50 ML IVPB (09:00)
[2018-06-29] MEDS: LIDOCAINE 2% 20 ML UROJET SYRINGE MM (09:30)
[2018-06-29] MEDS ORDERED: DICYCLOMINE 10 MG CAP PO (10:00)
[2018-06-29] MEDS ORDERED: LORAZEPAM 2 MG INJ IV (10:00)
[2018-06-29 10:45] LABS: CREATINE KINASE 91 IU/L (23-200)
[2018-06-29 10:58] LABS: TROPONIN-I 0.065 ng/ml (0.000-0.120)
[2018-06-29 11:00] LABS: CK-MB 4.53 ng/ml (0.0-2.4)
[2018-06-29] MEDS: CEFTRIAXONE 2 GM/50 ML (PMX) 50 ML IVPB (11:41)
[2018-06-29] MEDS: ASPIRIN (EC) 81 MG TAB PO (11:42)
[2018-06-29] MEDS: VANCOMYCIN HCL 1.5 GM in SOD CHLORIDE 0.9% 250 ML IVPB (12:27)
[2018-06-29] MEDS ORDERED: morphine 2 MG INJ (12:54)
[2018-06-29] MEDS: LORAZEPAM 2 MG INJ IV (14:21)
[2018-06-29] MEDS: LIDOCAINE 2% JEL.PF.APP 5 ML UROJET SYRINGE MM (14:26)
[2018-06-29 15:09] LABS: LACTATE DEHYDROGENASE 802 IU/L (313-618)
[2018-06-29 15:09] LABS: TOTAL PROTEIN 6.6 g/dl (6.1-8.1)
[2018-06-29 17:24] LABS: ANION GAP 12 (5-13); BLOOD UREA NITROGEN 36 mg/dl (7-20); CALCIUM 9.1 mg/dl (8.4-10.2); CARBON DIOXIDE 24 mmol/L (21-31); CHLORIDE 101 mmol/L (97-110); CREATININE 1.47 mg/dl (0.61-1.24); Estimated GFR 51 mL/min (>60); GLUCOSE 94 mg/dl (70-220); POTASSIUM 4.1 mmol/L (3.5-5.1); SODIUM 137 mmol/L (135-144)
[2018-06-29 17:50] LABS: MAGNESIUM 1.9 mg/dl (1.7-2.5)
[2018-06-30] MEDS: LORAZEPAM 2 MG INJ IV ×3 (00:19→14:05)
[2018-06-30] MEDS: VANCOMYCIN HCL 1.5 GM in SOD CHLORIDE 0.9% 250 ML IVPB ×2 (00:22→14:04)
[2018-06-30] MEDS: HYDROCODONE/APAP (5/325) TAB PO ×2 (02:59→11:32)
[2018-06-30] MEDS: LEVALBUTEROL (NEB) 1.25 MG/0.5 ML AMP HHN ×3 (03:00→23:44)
[2018-06-30 04:12] LABS: Allen Test ACCEPTAB; Arterial Base Excess -3.3 mmol/L (-3.0-3); Arterial Blood Gas Oxygen Sat 50.6 mmHG (95.0-98.0); Arterial COHb 0.9 % (0.0-3.0); Arterial Fraction of Oxyhgb 49.9 % (93.0-99.0); Arterial HCO3 24.7 mmol/L (22.0-26.0); Arterial MetHb 0.4 % (0.0-1.5); Arterial pCO2 56.4 mmhg (35-45); MODE HFNC; Site Right Radial
[2018-06-30 05:40] LABS: ADD MAN DIFF? NO
[2018-06-30 05:51] LABS: WHITE BLOOD COUNT 9.4 10^3/ul (4.8-10.8)
[2018-06-30 05:51] LABS: ABNORMAL IP MESSAGE 1; BASOPHILS % 0.3 % (0.0-2.0); EOSINOPHILS # 0.1 10^3/ul (0.0-0.5); EOSINOPHILS % 1.5 % (0.0-7.0); HEMATOCRIT 50.1 % (42.0-52.0); HEMOGLOBIN 14.5 g/dl (14.0-18.0); LYMPHOCYTES # 1.2 10^3/ul (0.8-2.9); LYMPHOCYTES % 12.5 % (15.0-51.0); MEAN CORPUSCULAR HGB CONC 28.9 g/dl (32.0-37.0); MEAN CORPUSCULAR VOLUME 82.9 fl (82.0-101.0); MEAN PLATELET VOLUME 11.1 fl (7.4-10.4); MONOCYTE # 1.2 10^3/ul (0.3-0.9); MONOCYTES % 13.1 % (0.0-11.0); NEUTROPHIL # 6.7 10^3/ul (1.6-7.5); NEUTROPHILS % 71.9 % (39.0-77.0); PLATELET COUNT 170 10^3/UL (140-415); POSITIVE DIFF @See below; RED BLOOD COUNT 6.04 10^6/ul (4.70-6.10); RED CELL DISTRIBUTION WIDTH 19.1 % (11.5-14.5)
[2018-06-30] MEDS: PANTOPRAZOLE (EC) 40 MG TAB PO (06:00)
[2018-06-30 06:13] LABS: ALANINE AMINOTRANSFERASE 73 IU/L (13-69); ALBUMIN 3.7 g/dl (3.3-4.9); ALBUMIN/GLOBULIN RATIO 1.48; ALKALINE PHOSPHATASE 101 IU/L (42-121); ANION GAP 13 (5-13); ASPARTATE AMINO TRANSFERASE 39 IU/L (15-46); BILIRUBIN,INDIRECT 1.1 mg/dl (0-1.1); BILIRUBIN,TOTAL 1.5 mg/dl (0.2-1.3); BLOOD UREA NITROGEN 41 mg/dl (7-20); CALCIUM 9.4 mg/dl (8.4-10.2); CARBON DIOXIDE 25 mmol/L (21-31); CHLORIDE 100 mmol/L (97-110); CREATININE 1.89 mg/dl (0.61-1.24); Estimated GFR 38 mL/min (>60); GLUCOSE 122 mg/dl (70-220); POTASSIUM 4.9 mmol/L (3.5-5.1); SODIUM 138 mmol/L (135-144); TOTAL PROTEIN 6.2 g/dl (6.1-8.1)
[2018-06-30 06:18] LABS: AADO2 Arterial 125.1 mmHg (7.0-24.0); Allen Test ACCEPTAB; Arterial Base Excess 1.2 mmol/L (-3.0-3); Arterial Blood Gas Oxygen Sat 99.6 mmHG (95.0-98.0); Arterial COHb 0.9 % (0.0-3.0); Arterial Fraction of Oxyhgb 98.3 % (93.0-99.0); Arterial HCO3 26.2 mmol/L (22.0-26.0); Arterial MetHb 0.4 % (0.0-1.5); Blood Gas IEPAP 18/6; MODE MASK - BIPAP; Site Right Radial
[2018-06-30] MEDS: FUROSEMIDE 40 MG INJ IV ×2 (06:27→18:14)
[2018-06-30] MEDS: ENALAPRIL 2.5 MG TAB PO (09:00)
[2018-06-30] MEDS: ASPIRIN (EC) 81 MG TAB PO (09:40)
[2018-06-30] MEDS: SPIRONOLACTONE 50 MG TAB PO ×2 (09:41→21:23)
[2018-06-30 10:52] LABS: MAGNESIUM 2.2 mg/dl (1.7-2.5)
[2018-06-30] MEDS: MUPIROCIN 2% 22 GM OINT TOP ×2 (14:04→21:24)
[2018-06-30] MEDS: ENOXAPARIN 40 MG/0.4 ML SYG SC (14:17)
[2018-06-30] MEDS ORDERED: HYDROCODONE/APAP (5/325) TAB PO (15:00)
[2018-06-30] MEDS: morphine 2 MG INJ IV ×3 (15:06→22:42)
[2018-06-30] MEDS: VANCOMYCIN 750 MG (PMX) 250 ML IVPB (17:35)
[2018-06-30 19:46] LABS: ADD UMIC YES; UR ASCORBIC ACID NEGATIVE (NEGATIVE); UR BILIRUBIN (Dip) NEGATIVE (NEGATIVE); UR BLOOD (Dip) 2+ mg/dL (NEGATIVE); UR CLARITY SLIGHTLY CLOUDY (CLEAR); UR COLOR AMBER (YELLOW); UR GLUCOSE (Dip) NEGATIVE (NEGATIVE); UR KETONES (Dip) NEGATIVE (NEGATIVE); UR LEUKOCYTE ESTERASE (Dip) NEGATIVE Leu/ul (NEGATIVE); UR MUCUS FEW /HPF (NONE SEEN); UR NITRITE (Dip) NEGATIVE (NEGATIVE); UR RBC 44 /HPF (0-5); UR SPECIFIC GRAVITY (Dip) 1.018 (1.003-1.030); UR TOTAL PROTEIN (Dip) 1+ mg/dl (NEGATIVE); UR UROBILINOGEN (Dip) 2+ mg/dL (NEGATIVE); UR WBC 5 /HPF (0-5)
[2018-06-30 20:22] LABS: SODIUM,URINE RANDOM 41 mmol/L (30-90)
[2018-06-30 20:22] LABS: CREATININE,URINE RANDOM 126.37 mg/dl (20-370)
[2018-06-30 20:25] LABS: BARBITURATES Negative (NEGATIVE); BENZODIAZEPINES Negative (NEGATIVE); CANNABINOIDS Negative (NEGATIVE); COCAINE Negative (NEGATIVE)
[2018-06-30 20:33] LABS: OPIATES Positive (NEGATIVE)
[2018-06-30 20:40] LABS: AMPHETAMINE/METHAMPHETAMINE POSITIVE (NEGATIVE)
[2018-06-30] MEDS: CEFEPIME 1GM/50 ML (PMX) 50 ML IVPB (21:23)
[2018-07-01] MEDS: VANCOMYCIN 750 MG (PMX) 250 ML IVPB ×2 (03:31→17:02)
[2018-07-01] MEDS: morphine 2 MG INJ IV ×4 (03:39→21:43)
[2018-07-01 05:11] LABS: ADD MAN DIFF? NO
[2018-07-01 05:15] LABS: WHITE BLOOD COUNT 8.6 10^3/ul (4.8-10.8)
[2018-07-01 05:15] LABS: BASOPHILS % 0.3 % (0.0-2.0); EOSINOPHILS # 0.1 10^3/ul (0.0-0.5); EOSINOPHILS % 1.5 % (0.0-7.0); HEMATOCRIT 47.3 % (42.0-52.0); HEMOGLOBIN 14.1 g/dl (14.0-18.0); LYMPHOCYTES # 1.3 10^3/ul (0.8-2.9); LYMPHOCYTES % 14.7 % (15.0-51.0); MEAN CORPUSCULAR HEMOGLOBIN 24.1 pg (29.0-33.0); MEAN CORPUSCULAR HGB CONC 29.8 g/dl (32.0-37.0); MEAN PLATELET VOLUME 10.6 fl (7.4-10.4); MONOCYTE # 1.1 10^3/ul (0.3-0.9); MONOCYTES % 12.3 % (0.0-11.0); NEUTROPHIL # 6.1 10^3/ul (1.6-7.5); NEUTROPHILS % 70.5 % (39.0-77.0); PLATELET COUNT 184 10^3/UL (140-415); RED BLOOD COUNT 5.84 10^6/ul (4.70-6.10); RED CELL DISTRIBUTION WIDTH 19.2 % (11.5-14.5)
[2018-07-01 05:50] LABS: ALANINE AMINOTRANSFERASE 68 IU/L (13-69); ALBUMIN 3.4 g/dl (3.3-4.9); ALBUMIN/GLOBULIN RATIO 1.36; ALKALINE PHOSPHATASE 103 IU/L (42-121); ANION GAP 9 (5-13); ASPARTATE AMINO TRANSFERASE 37 IU/L (15-46); BILIRUBIN,INDIRECT 0.5 mg/dl (0-1.1); BILIRUBIN,TOTAL 0.5 mg/dl (0.2-1.3); BLOOD UREA NITROGEN 48 mg/dl (7-20); CALCIUM 9.2 mg/dl (8.4-10.2); CARBON DIOXIDE 27 mmol/L (21-31); CHLORIDE 99 mmol/L (97-110); CREATININE 1.69 mg/dl (0.61-1.24); Estimated GFR 43 mL/min (>60); GLUCOSE 92 mg/dl (70-220); POTASSIUM 4.3 mmol/L (3.5-5.1); SODIUM 135 mmol/L (135-144); TOTAL PROTEIN 5.9 g/dl (6.1-8.1)
[2018-07-01] MEDS: PANTOPRAZOLE (EC) 40 MG TAB PO (06:14)
[2018-07-01] MEDS: FUROSEMIDE 40 MG INJ IV ×2 (06:14→17:51)
[2018-07-01] MEDS: LEVALBUTEROL (NEB) 1.25 MG/0.5 ML AMP HHN ×2 (08:33→16:43)
[2018-07-01] MEDS: SPIRONOLACTONE 50 MG TAB PO ×2 (08:50→21:40)
[2018-07-01] MEDS: CEFEPIME 1GM/50 ML (PMX) 50 ML IVPB ×2 (08:50→21:39)
[2018-07-01] MEDS: ASPIRIN (EC) 81 MG TAB PO (08:50)
[2018-07-01] MEDS: ENOXAPARIN 40 MG/0.4 ML SYG SC (08:51)
[2018-07-01] MEDS: MUPIROCIN 2% 22 GM OINT TOP ×2 (08:53→21:00)
[2018-07-01] MEDS: LORAZEPAM 2 MG INJ IV (09:09)
[2018-07-01 15:30] LABS: VANCOMYCIN,TROUGH 16.8 ug/ml (10.0-20.0)
[2018-07-02] MEDS: LEVALBUTEROL (NEB) 1.25 MG/0.5 ML AMP HHN ×4 (01:33→22:12)
[2018-07-02] MEDS: morphine 2 MG INJ IV ×4 (03:30→20:15)
[2018-07-02] MEDS: FUROSEMIDE 40 MG INJ IV ×2 (05:44→18:04)
[2018-07-02] MEDS: PANTOPRAZOLE (EC) 40 MG TAB PO (05:44)
[2018-07-02] MEDS: HYDROCODONE/APAP (10/325) TAB PO ×2 (06:14→18:04)
[2018-07-02] MEDS: LORAZEPAM 2 MG INJ IV ×2 (06:16→22:09)
[2018-07-02] MEDS: VANCOMYCIN 500 MG (PMX) 100 ML IVPB ×2 (06:42→15:47)
[2018-07-02] MEDS: CEFEPIME 1GM/50 ML (PMX) 50 ML IVPB (08:52)
[2018-07-02] MEDS: ENOXAPARIN 40 MG/0.4 ML SYG SC (09:02)
[2018-07-02] MEDS: SPIRONOLACTONE 50 MG TAB PO ×2 (11:34→20:11)
[2018-07-02] MEDS: ASPIRIN (EC) 81 MG TAB PO (11:35)
[2018-07-02] MEDS: MUPIROCIN 2% 22 GM OINT TOP ×2 (11:35→20:12)
[2018-07-02 11:44] LABS: ADD MAN DIFF? NO
[2018-07-02 11:49] LABS: WHITE BLOOD COUNT 8.6 10^3/ul (4.8-10.8)
[2018-07-02 11:49] LABS: BASOPHILS % 0.3 % (0.0-2.0); EOSINOPHILS # 0.1 10^3/ul (0.0-0.5); EOSINOPHILS % 1.6 % (0.0-7.0); HEMATOCRIT 48.3 % (42.0-52.0); HEMOGLOBIN 14.4 g/dl (14.0-18.0); LYMPHOCYTES # 1.7 10^3/ul (0.8-2.9); LYMPHOCYTES % 20.1 % (15.0-51.0); MEAN CORPUSCULAR HEMOGLOBIN 24.1 pg (29.0-33.0); MEAN CORPUSCULAR HGB CONC 29.8 g/dl (32.0-37.0); MEAN CORPUSCULAR VOLUME 80.9 fl (82.0-101.0); MEAN PLATELET VOLUME 10.8 fl (7.4-10.4); MONOCYTE # 1.1 10^3/ul (0.3-0.9); NEUTROPHIL # 5.5 10^3/ul (1.6-7.5); NEUTROPHILS % 64.4 % (39.0-77.0); PLATELET COUNT 213 10^3/UL (140-415); RED BLOOD COUNT 5.97 10^6/ul (4.70-6.10)
[2018-07-02 12:10] LABS: ANION GAP 10 (5-13); Estimated GFR 42 mL/min (>60)
[2018-07-02 12:12] LABS: BLOOD UREA NITROGEN 52 mg/dl (7-20); CALCIUM 9.2 mg/dl (8.4-10.2); CARBON DIOXIDE 29 mmol/L (21-31); CHLORIDE 96 mmol/L (97-110); CREATININE 1.72 mg/dl (0.61-1.24); GLUCOSE 90 mg/dl (70-220); MAGNESIUM 1.9 mg/dl (1.7-2.5); PHOSPHORUS 3.5 mg/dl (2.5-4.9); POTASSIUM 4.2 mmol/L (3.5-5.1); SODIUM 135 mmol/L (135-144)
[2018-07-02 12:13] LABS: ALBUMIN 3.4 g/dl (3.3-4.9); ALBUMIN/GLOBULIN RATIO 1.47; ASPARTATE AMINO TRANSFERASE 51 IU/L (15-46); BILIRUBIN,INDIRECT 0.6 mg/dl (0-1.1); BILIRUBIN,TOTAL 0.6 mg/dl (0.2-1.3); BLOOD UREA NITROGEN 53 mg/dl (7-20); CALCIUM 9.2 mg/dl (8.4-10.2); CARBON DIOXIDE 30 mmol/L (21-31); CHLORIDE 96 mmol/L (97-110); CREATININE 1.63 mg/dl (0.61-1.24); Estimated GFR 45 mL/min (>60); GLUCOSE 88 mg/dl (70-220); TOTAL PROTEIN 5.7 g/dl (6.1-8.1)
[2018-07-02 12:48] LABS: ALKALINE PHOSPHATASE 117 IU/L (42-121); ANION GAP 8 (5-13); POTASSIUM 4.6 mmol/L (3.5-5.1)
[2018-07-02 12:51] LABS: ALANINE AMINOTRANSFERASE 73 IU/L (13-69); SODIUM 134 mmol/L (135-144)
[2018-07-03] MEDS: PANTOPRAZOLE (EC) 40 MG TAB PO (06:37)
[2018-07-03] MEDS: FUROSEMIDE 40 MG INJ IV ×2 (06:38→15:08)
[2018-07-03] MEDS: morphine 2 MG INJ IV (06:51)
[2018-07-03 07:55] LABS: ADD MAN DIFF? NO
[2018-07-03 07:58] LABS: BASOPHILS % 0.4 % (0.0-2.0); EOSINOPHILS # 0.1 10^3/ul (0.0-0.5); EOSINOPHILS % 1.5 % (0.0-7.0); HEMATOCRIT 49.2 % (42.0-52.0); HEMOGLOBIN 14.4 g/dl (14.0-18.0); LYMPHOCYTES # 1.6 10^3/ul (0.8-2.9); LYMPHOCYTES % 17.6 % (15.0-51.0); MEAN CORPUSCULAR HGB CONC 29.3 g/dl (32.0-37.0); MEAN CORPUSCULAR VOLUME 82.1 fl (82.0-101.0); MONOCYTES % 11.1 % (0.0-11.0); NEUTROPHIL # 6.4 10^3/ul (1.6-7.5); NEUTROPHILS % 68.5 % (39.0-77.0); PLATELET COUNT 217 10^3/UL (140-415); RED BLOOD COUNT 5.99 10^6/ul (4.70-6.10); RED CELL DISTRIBUTION WIDTH 19.4 % (11.5-14.5)
[2018-07-03 07:58] LABS: WHITE BLOOD COUNT 9.3 10^3/ul (4.8-10.8)
[2018-07-03 08:19] LABS: ANION GAP 13 (5-13); BLOOD UREA NITROGEN 54 mg/dl (7-20); CALCIUM 9.3 mg/dl (8.4-10.2); CARBON DIOXIDE 29 mmol/L (21-31); CHLORIDE 94 mmol/L (97-110); CREATININE 1.69 mg/dl (0.61-1.24); Estimated GFR 43 mL/min (>60); GLUCOSE 95 mg/dl (70-220); PHOSPHORUS 3.6 mg/dl (2.5-4.9); POTASSIUM 5.2 mmol/L (3.5-5.1); SODIUM 136 mmol/L (135-144)
[2018-07-03] MEDS: ASPIRIN (EC) 81 MG TAB PO (08:24)
[2018-07-03] MEDS: SPIRONOLACTONE 50 MG TAB PO (08:24)
[2018-07-03] MEDS: ENOXAPARIN 40 MG/0.4 ML SYG SC (08:37)
[2018-07-03] MEDS: LEVALBUTEROL (NEB) 1.25 MG/0.5 ML AMP HHN ×2 (08:38→18:51)
[2018-07-03] MEDS: HYDROCODONE/APAP (10/325) TAB PO (08:48)
[2018-07-03] MEDS ORDERED: morphine LIQ (10 MG/5 ML) CUP PO (09:00)
[2018-07-03] MEDS: INSULIN REGULAR, HUMAN 100 UNIT/1 ML 3ML VIAL IVP (09:25)
[2018-07-03] MEDS ORDERED: LORAZEPAM 0.5 MG TAB PO (09:30)
[2018-07-03] MEDS ORDERED: DEXTROSE 50% 50 ML SYRINGE IV (09:30)
[2018-07-03] MEDS: NA POLYST SULFON 15 GM/60 ML BTL PO (11:49)
[2018-07-03] MEDS: MUPIROCIN 2% 22 GM OINT TOP (11:51)
[2018-07-03] MEDS: morphine LIQ (10 MG/5 ML) CUP PO ×2 (11:56→18:54)
[2018-07-03] MEDS: BUMETANIDE 1 MG TAB PO (16:02)
[2018-07-04 15:30] LABS: CREATININE, RANDOM URINE 121 mg/dL (20-320); MICROALBUMIN 11.8 mg/dL; MICROALBUMIN/CREATININE RATIO 98 (<30)
== END 2018-07-03 21:02 | disposition left against medical advice (07) | DRG 871 ==
LOC: TEL 07-02 22:12 → E/R 21:37 → 6WM 06-29 01:51 → TEL 07-01 19:04 → ICU 06-29 13:57
PROC: 5A09457 Assistance with Respiratory Ventilation, 24-96 Consecutive Hours, Continuous Positive Airway Pressure (ICD-10-PCS; principal; 2018-06-30)
DX: A41.9 Sepsis, unspecified organism (principal); J18.9 Pneumonia, unspecified organism; J96.01 Acute respiratory failure with hypoxia; I50.43 Acute on chronic combined systolic (congestive) and diastolic (congestive) heart failure; N17.9 Acute kidney failure, unspecified; R18.8 Other ascites; I13.0 Hypertensive heart and chronic kidney disease with heart failure and stage 1 through stage 4 chronic kidney disease, or unspecified chronic kidney disease; I42.9 Cardiomyopathy, unspecified; K74.60 Unspecified cirrhosis of liver; B19.20 Unspecified viral hepatitis C without hepatic coma; N18.9 Chronic kidney disease, unspecified; J44.9 Chronic obstructive pulmonary disease, unspecified; N50.89 Other specified disorders of the male genital organs; E87.5 Hyperkalemia
CPT/HCPCS: 36600; 71045; 76705; 76870; 80048; 80053; 80202; 80307; 81001; 81003; 82043; 82550; 82553; 82803; 82962; 83605; 83615; 83735; 83880; 84100; 84155; 84300; 84484; 85025; 85610; 85730; 87040; 87081; 87086; 87400; 87522; 93005; 93306; 94640; 94660; 94664; 96374; 96375; 96376; 99285-25

== ENCOUNTER 2018-07-11 21:33 | Inpatient (IN) | payer OTHER ==
[2018-07-11] MEDS ORDERED: ACETAMINOPHEN 325 MG TAB PO (23:00)
[2018-07-11] MEDS ORDERED: LORAZEPAM 2 MG INJ IV ×2 (23:00→23:30)
[2018-07-11] MEDS ORDERED: ONDANSETRON 4 MG INJ IV (23:00)
[2018-07-11] MEDS ORDERED: NACL 0.9% 3 ML SYG IV (23:00)
[2018-07-11 23:40] LABS: ADD MAN DIFF? NO
[2018-07-11 23:59] LABS: WHITE BLOOD COUNT 17.4 10^3/ul (4.8-10.8)
[2018-07-11 23:59] LABS: ABNORMAL IP MESSAGE 1; BASOPHILS % 0.2 % (0.0-2.0); EOSINOPHILS # 0.1 10^3/ul (0.0-0.5); EOSINOPHILS % 0.3 % (0.0-7.0); HEMATOCRIT 45.8 % (42.0-52.0); HEMOGLOBIN 13.7 g/dl (14.0-18.0); LYMPHOCYTES # 0.6 10^3/ul (0.8-2.9); LYMPHOCYTES % 3.3 % (15.0-51.0); MEAN CORPUSCULAR HEMOGLOBIN 24.1 pg (29.0-33.0); MEAN CORPUSCULAR HGB CONC 29.9 g/dl (32.0-37.0); MEAN CORPUSCULAR VOLUME 80.5 fl (82.0-101.0); MEAN PLATELET VOLUME 9.8 fl (7.4-10.4); MONOCYTE # 0.9 10^3/ul (0.3-0.9); MONOCYTES % 5.3 % (0.0-11.0); NEUTROPHIL # 15.6 10^3/ul (1.6-7.5); NEUTROPHILS % 89.9 % (39.0-77.0); PLATELET COUNT 275 10^3/UL (140-415); POSITIVE DIFF @See below; RED BLOOD COUNT 5.69 10^6/ul (4.70-6.10); RED CELL DISTRIBUTION WIDTH 19.7 % (11.5-14.5)
[2018-07-12 00:02] LABS: ALANINE AMINOTRANSFERASE 39 IU/L (13-69); ALBUMIN 3.5 g/dl (3.3-4.9); ALBUMIN/GLOBULIN RATIO 1.29; ALKALINE PHOSPHATASE 135 IU/L (42-121); ANION GAP 10 (5-13); ASPARTATE AMINO TRANSFERASE 29 IU/L (15-46); BILIRUBIN,INDIRECT 0.5 mg/dl (0-1.1); BILIRUBIN,TOTAL 0.5 mg/dl (0.2-1.3); BLOOD UREA NITROGEN 46 mg/dl (7-20); CARBON DIOXIDE 34 mmol/L (21-31); CHLORIDE 90 mmol/L (97-110); CREATININE 1.25 mg/dl (0.61-1.24); Estimated GFR > 60 mL/min (>60); GLUCOSE 125 mg/dl (70-220); MAGNESIUM 1.7 mg/dl (1.7-2.5); POTASSIUM 4.1 mmol/L (3.5-5.1); SODIUM 134 mmol/L (135-144); TOTAL PROTEIN 6.2 g/dl (6.1-8.1)
[2018-07-12 00:10] LABS: B-TYPE NATRIURETIC PEPTIDE 11400 PG/ML (0-125)
[2018-07-12] MEDS: LORAZEPAM 2 MG INJ IV ×2 (00:55→18:57)
[2018-07-12] MEDS: CEFTRIAXONE 1 GM/50 ML (PMX) 50 ML IVPB (04:30)
[2018-07-12] MEDS: FUROSEMIDE 40 MG INJ IV ×2 (06:56→17:29)
[2018-07-12 07:11] LABS: ADD MAN DIFF? NO
[2018-07-12 07:16] LABS: WHITE BLOOD COUNT 16.6 10^3/ul (4.8-10.8)
[2018-07-12 07:16] LABS: BASOPHILS % 0.2 % (0.0-2.0); EOSINOPHILS # 0.1 10^3/ul (0.0-0.5); EOSINOPHILS % 0.4 % (0.0-7.0); HEMATOCRIT 47.8 % (42.0-52.0); HEMOGLOBIN 14.2 g/dl (14.0-18.0); LYMPHOCYTES # 0.9 10^3/ul (0.8-2.9); LYMPHOCYTES % 5.1 % (15.0-51.0); MEAN CORPUSCULAR HEMOGLOBIN 24.1 pg (29.0-33.0); MEAN CORPUSCULAR HGB CONC 29.7 g/dl (32.0-37.0); MEAN PLATELET VOLUME 9.8 fl (7.4-10.4); MONOCYTE # 0.8 10^3/ul (0.3-0.9); MONOCYTES % 4.8 % (0.0-11.0); NEUTROPHIL # 14.7 10^3/ul (1.6-7.5); NEUTROPHILS % 88.6 % (39.0-77.0); PLATELET COUNT 309 10^3/UL (140-415); RED CELL DISTRIBUTION WIDTH 20.1 % (11.5-14.5)
[2018-07-12 07:39] LABS: HEMOGLOBIN A1C 6.9 % (0-5.9)
[2018-07-12 07:50] LABS: ALANINE AMINOTRANSFERASE 37 IU/L (13-69); ALBUMIN 3.2 g/dl (3.3-4.9); ALBUMIN/GLOBULIN RATIO 1.14; ALKALINE PHOSPHATASE 154 IU/L (42-121); ANION GAP 10 (5-13); ASPARTATE AMINO TRANSFERASE 30 IU/L (15-46); BILIRUBIN,INDIRECT 0.5 mg/dl (0-1.1); BILIRUBIN,TOTAL 0.5 mg/dl (0.2-1.3); BLOOD UREA NITROGEN 45 mg/dl (7-20); CALCIUM 8.9 mg/dl (8.4-10.2); CARBON DIOXIDE 33 mmol/L (21-31); CHLORIDE 93 mmol/L (97-110); CREATININE 1.07 mg/dl (0.61-1.24); Estimated GFR > 60 mL/min (>60); GLUCOSE 143 mg/dl (70-220); POTASSIUM 3.7 mmol/L (3.5-5.1); SODIUM 136 mmol/L (135-144)
[2018-07-12 07:54] LABS: C-REACTIVE PROTEIN 3.1 mg/dl (0.0-0.9)
[2018-07-12] MEDS: ALBUTEROL HFA 8 GM INHALER INH ×4 (08:00→20:18)
[2018-07-12 08:13] LABS: MAGNESIUM 1.8 mg/dl (1.7-2.5)
[2018-07-12] MEDS: ASPIRIN (EC) 81 MG TAB PO (08:36)
[2018-07-12] MEDS: ENALAPRIL 2.5 MG TAB PO (08:36)
[2018-07-12] MEDS: SPIRONOLACTONE 50 MG TAB PO ×2 (08:36→20:15)
[2018-07-12 08:46] LABS: ERYTHROCYTE SEDIMENTATION RATE 1 mm/Hr (0-20)
[2018-07-12] MEDS: DOXYCYCLINE 100 MG in SOD CHLORIDE 0.9% 250 ML IVPB ×2 (08:46→20:18)
[2018-07-12] MEDS: ENOXAPARIN 30 MG/0.3 ML SYG SC (08:51)
[2018-07-12] MEDS: morphine 2 MG INJ IV ×2 (11:01→16:01)
[2018-07-12] MEDS: ALBUTEROL 0.083% (NEB) 2.5 MG/3 ML AMP HHN ×2 (13:13→19:44)
[2018-07-12] MEDS: POTASSIUM CHLORIDE (SR) 10 MEQ TAB PO (18:13)
[2018-07-12] MEDS: MAGNESIUM SULFATE 2 GM/50 ML 50 ML IVPB (18:17)
[2018-07-12] MEDS: ASCORBIC ACID 500 MG TAB PO (20:15)
[2018-07-12 22:55] LABS: ADD UMIC NO; UR ASCORBIC ACID NEGATIVE (NEGATIVE); UR BILIRUBIN (Dip) NEGATIVE (NEGATIVE); UR BLOOD (Dip) NEGATIVE (NEGATIVE); UR CLARITY CLEAR (CLEAR); UR COLOR YELLOW (YELLOW); UR GLUCOSE (Dip) NEGATIVE (NEGATIVE); UR KETONES (Dip) NEGATIVE (NEGATIVE); UR LEUKOCYTE ESTERASE (Dip) NEGATIVE Leu/ul (NEGATIVE); UR NITRITE (Dip) NEGATIVE (NEGATIVE); UR SPECIFIC GRAVITY (Dip) 1.009 (1.003-1.030); UR TOTAL PROTEIN (Dip) NEGATIVE (NEGATIVE); UR UROBILINOGEN (Dip) 2+ mg/dL (NEGATIVE)
[2018-07-12] MEDS: HYDROmorphONE 0.5 MG/0.5 ML SYG IV (23:06)
[2018-07-12 23:08] LABS: AMPHETAMINE/METHAMPHETAMINE Negative (NEGATIVE); BARBITURATES Negative (NEGATIVE); BENZODIAZEPINES Negative (NEGATIVE); CANNABINOIDS Negative (NEGATIVE); COCAINE Negative (NEGATIVE); OPIATES Positive (NEGATIVE)
[2018-07-13] MEDS: ALBUTEROL HFA 8 GM INHALER INH ×4 (03:33→19:05)
[2018-07-13] MEDS: HYDROmorphONE 0.5 MG/0.5 ML SYG IV ×4 (03:36→21:03)
[2018-07-13] MEDS: CEFTRIAXONE 1 GM/50 ML (PMX) 50 ML IVPB (05:04)
[2018-07-13] MEDS: FUROSEMIDE 40 MG INJ IV ×2 (05:36→17:16)
[2018-07-13] MEDS: SPIRONOLACTONE 50 MG TAB PO ×2 (08:15→20:19)
[2018-07-13] MEDS: ASPIRIN (EC) 81 MG TAB PO (08:16)
[2018-07-13] MEDS: ZINC SULFATE 220 MG CAP PO (08:16)
[2018-07-13] MEDS: ENALAPRIL 2.5 MG TAB PO (08:16)
[2018-07-13] MEDS: ASCORBIC ACID 500 MG TAB PO ×2 (08:16→20:19)
[2018-07-13] MEDS: DOXYCYCLINE 100 MG in SOD CHLORIDE 0.9% 250 ML IVPB (08:17)
[2018-07-13] MEDS: ENOXAPARIN 30 MG/0.3 ML SYG SC (08:23)
[2018-07-13 08:44] LABS: ADD MAN DIFF? NO
[2018-07-13 08:48] LABS: WHITE BLOOD COUNT 10.3 10^3/ul (4.8-10.8)
[2018-07-13 08:48] LABS: BASOPHILS % 0.1 % (0.0-2.0); EOSINOPHILS # 0.1 10^3/ul (0.0-0.5); EOSINOPHILS % 1.1 % (0.0-7.0); HEMATOCRIT 49.1 % (42.0-52.0); HEMOGLOBIN 14.4 g/dl (14.0-18.0); LYMPHOCYTES # 1.5 10^3/ul (0.8-2.9); LYMPHOCYTES % 14.1 % (15.0-51.0); MEAN CORPUSCULAR HEMOGLOBIN 23.8 pg (29.0-33.0); MEAN CORPUSCULAR HGB CONC 29.3 g/dl (32.0-37.0); MEAN CORPUSCULAR VOLUME 81.3 fl (82.0-101.0); MEAN PLATELET VOLUME 9.7 fl (7.4-10.4); MONOCYTE # 0.9 10^3/ul (0.3-0.9); NEUTROPHIL # 7.7 10^3/ul (1.6-7.5); PLATELET COUNT 315 10^3/UL (140-415); RED BLOOD COUNT 6.04 10^6/ul (4.70-6.10); RED CELL DISTRIBUTION WIDTH 20.3 % (11.5-14.5)
[2018-07-13 09:12] LABS: ALANINE AMINOTRANSFERASE 41 IU/L (13-69); ALBUMIN 3.3 g/dl (3.3-4.9); ALBUMIN/GLOBULIN RATIO 1.17; ALKALINE PHOSPHATASE 126 IU/L (42-121); ANION GAP 9 (5-13); ASPARTATE AMINO TRANSFERASE 34 IU/L (15-46); BILIRUBIN,INDIRECT 0.6 mg/dl (0-1.1); BILIRUBIN,TOTAL 0.6 mg/dl (0.2-1.3); BLOOD UREA NITROGEN 44 mg/dl (7-20); CALCIUM 8.8 mg/dl (8.4-10.2); CARBON DIOXIDE 38 mmol/L (21-31); CHLORIDE 91 mmol/L (97-110); Estimated GFR > 60 mL/min (>60); GLUCOSE 124 mg/dl (70-220); POTASSIUM 3.8 mmol/L (3.5-5.1); SODIUM 138 mmol/L (135-144); TOTAL PROTEIN 6.1 g/dl (6.1-8.1)
[2018-07-13] MEDS: ALBUTEROL 0.083% (NEB) 2.5 MG/3 ML AMP HHN (20:58)
[2018-07-14] MEDS: ALBUTEROL HFA 8 GM INHALER INH ×4 (02:04→20:33)
[2018-07-14] MEDS: HYDROmorphONE 0.5 MG/0.5 ML SYG IV ×3 (02:06→20:35)
[2018-07-14] MEDS: CEFTRIAXONE 1 GM/50 ML (PMX) 50 ML IVPB (04:23)
[2018-07-14] MEDS: morphine 2 MG INJ IV (06:23)
[2018-07-14] MEDS: ZINC SULFATE 220 MG CAP PO (08:33)
[2018-07-14] MEDS: ASCORBIC ACID 500 MG TAB PO ×2 (08:33→20:32)
[2018-07-14] MEDS: ASPIRIN (EC) 81 MG TAB PO (08:34)
[2018-07-14] MEDS: ENALAPRIL 2.5 MG TAB PO (08:35)
[2018-07-14] MEDS: SPIRONOLACTONE 50 MG TAB PO ×2 (08:35→20:32)
[2018-07-14] MEDS: FUROSEMIDE 40 MG INJ IV (08:36)
[2018-07-14] MEDS: ENOXAPARIN 30 MG/0.3 ML SYG SC (08:41)
[2018-07-14 08:42] LABS: ADD MAN DIFF? NO
[2018-07-14 08:48] LABS: WHITE BLOOD COUNT 9.9 10^3/ul (4.8-10.8)
[2018-07-14 08:48] LABS: BASOPHILS % 0.2 % (0.0-2.0); EOSINOPHILS # 0.2 10^3/ul (0.0-0.5); EOSINOPHILS % 1.8 % (0.0-7.0); HEMATOCRIT 48.5 % (42.0-52.0); HEMOGLOBIN 14.4 g/dl (14.0-18.0); LYMPHOCYTES # 1.8 10^3/ul (0.8-2.9); LYMPHOCYTES % 18.4 % (15.0-51.0); MEAN CORPUSCULAR HEMOGLOBIN 23.8 pg (29.0-33.0); MEAN CORPUSCULAR HGB CONC 29.7 g/dl (32.0-37.0); MEAN CORPUSCULAR VOLUME 80.2 fl (82.0-101.0); MEAN PLATELET VOLUME 9.6 fl (7.4-10.4); MONOCYTE # 1.1 10^3/ul (0.3-0.9); NEUTROPHIL # 6.7 10^3/ul (1.6-7.5); NEUTROPHILS % 68.1 % (39.0-77.0); PLATELET COUNT 325 10^3/UL (140-415); RED BLOOD COUNT 6.05 10^6/ul (4.70-6.10); RED CELL DISTRIBUTION WIDTH 20.4 % (11.5-14.5)
[2018-07-14 09:24] LABS: ALANINE AMINOTRANSFERASE 37 IU/L (13-69); ALBUMIN 3.2 g/dl (3.3-4.9); ALBUMIN/GLOBULIN RATIO 1.14; ALKALINE PHOSPHATASE 130 IU/L (42-121); ANION GAP 6 (5-13); ASPARTATE AMINO TRANSFERASE 35 IU/L (15-46); BLOOD UREA NITROGEN 38 mg/dl (7-20); CALCIUM 9.1 mg/dl (8.4-10.2); CARBON DIOXIDE 37 mmol/L (21-31); CHLORIDE 95 mmol/L (97-110); CREATININE 0.97 mg/dl (0.61-1.24); Estimated GFR > 60 mL/min (>60); GLUCOSE 74 mg/dl (70-220); POTASSIUM 4.1 mmol/L (3.5-5.1); SODIUM 138 mmol/L (135-144)
[2018-07-14] MEDS: FUROSEMIDE 20 MG INJ IV (17:15)
[2018-07-14] MEDS: ALBUTEROL 0.083% (NEB) 2.5 MG/3 ML AMP HHN (20:19)
[2018-07-15] MEDS: ALBUTEROL HFA 8 GM INHALER INH ×4 (02:00→20:12)
[2018-07-15] MEDS: CEFTRIAXONE 1 GM/50 ML (PMX) 50 ML IVPB (04:41)
[2018-07-15 06:48] LABS: ADD MAN DIFF? NO
[2018-07-15 06:53] LABS: BASOPHILS % 0.3 % (0.0-2.0); EOSINOPHILS # 0.2 10^3/ul (0.0-0.5); EOSINOPHILS % 1.7 % (0.0-7.0); HEMATOCRIT 48.6 % (42.0-52.0); HEMOGLOBIN 14.6 g/dl (14.0-18.0); LYMPHOCYTES # 1.3 10^3/ul (0.8-2.9); LYMPHOCYTES % 14.9 % (15.0-51.0); MEAN CORPUSCULAR HEMOGLOBIN 23.9 pg (29.0-33.0); MEAN CORPUSCULAR VOLUME 79.4 fl (82.0-101.0); MEAN PLATELET VOLUME 9.6 fl (7.4-10.4); MONOCYTE # 0.9 10^3/ul (0.3-0.9); MONOCYTES % 10.2 % (0.0-11.0); NEUTROPHIL # 6.4 10^3/ul (1.6-7.5); NEUTROPHILS % 72.3 % (39.0-77.0); PLATELET COUNT 308 10^3/UL (140-415); RED BLOOD COUNT 6.12 10^6/ul (4.70-6.10); RED CELL DISTRIBUTION WIDTH 20.8 % (11.5-14.5)
[2018-07-15 06:53] LABS: WHITE BLOOD COUNT 8.9 10^3/ul (4.8-10.8)
[2018-07-15 07:16] LABS: ALANINE AMINOTRANSFERASE 37 IU/L (13-69); ALBUMIN 3.3 g/dl (3.3-4.9); ALBUMIN/GLOBULIN RATIO 1.17; ALKALINE PHOSPHATASE 117 IU/L (42-121); ANION GAP 10 (5-13); ASPARTATE AMINO TRANSFERASE 30 IU/L (15-46); BILIRUBIN,INDIRECT 1.2 mg/dl (0-1.1); BILIRUBIN,TOTAL 1.2 mg/dl (0.2-1.3); BLOOD UREA NITROGEN 28 mg/dl (7-20); CALCIUM 9.1 mg/dl (8.4-10.2); CARBON DIOXIDE 33 mmol/L (21-31); CHLORIDE 95 mmol/L (97-110); CREATININE 0.82 mg/dl (0.61-1.24); Estimated GFR > 60 mL/min (>60); GLUCOSE 109 mg/dl (70-220); POTASSIUM 3.9 mmol/L (3.5-5.1); SODIUM 138 mmol/L (135-144); TOTAL PROTEIN 6.1 g/dl (6.1-8.1)
[2018-07-15 07:29] LABS: MAGNESIUM 1.8 mg/dl (1.7-2.5)
[2018-07-15] MEDS: ENOXAPARIN 30 MG/0.3 ML SYG SC (08:09)
[2018-07-15] MEDS: ASPIRIN (EC) 81 MG TAB PO (08:11)
[2018-07-15] MEDS: ASCORBIC ACID 500 MG TAB PO ×2 (08:11→20:10)
[2018-07-15] MEDS: SPIRONOLACTONE 50 MG TAB PO ×2 (08:11→20:11)
[2018-07-15] MEDS: LISINOPRIL 5 MG TAB PO (08:11)
[2018-07-15] MEDS: ZINC SULFATE 220 MG CAP PO (08:11)
[2018-07-15] MEDS: FUROSEMIDE 40 MG INJ IV (08:12)
[2018-07-15 11:01] LABS: INR 1.23; PARTIAL THROMBOPLASTIN TIME 36.5 Sec (23.0-35.0); PROTIME 15.6 Sec (11.9-14.9); PT RATIO 1.2
[2018-07-15] MEDS: LIDOCAINE 1% (MPF) 5 ML VIAL (12:38)
[2018-07-15] MEDS: HYDROmorphONE 0.5 MG/0.5 ML SYG IV ×2 (14:31→20:12)
[2018-07-15] MEDS: POTASSIUM CHLORIDE (SR) 10 MEQ TAB PO (15:28)
[2018-07-15] MEDS: MAGNESIUM SULFATE 2 GM/50 ML 50 ML IVPB (15:28)
[2018-07-15] MEDS: FUROSEMIDE 20 MG INJ IV (15:29)
[2018-07-15] MEDS ORDERED: morphine LIQ (10 MG/5 ML) CUP PO (17:30)
[2018-07-16] MEDS: HYDROmorphONE 0.5 MG/0.5 ML SYG IV ×2 (00:44→08:19)
[2018-07-16] MEDS: ALBUTEROL HFA 8 GM INHALER INH ×2 (02:58→08:00)
[2018-07-16] MEDS: LORAZEPAM 2 MG INJ IV (03:03)
[2018-07-16] MEDS: CEFTRIAXONE 1 GM/50 ML (PMX) 50 ML IVPB (05:24)
[2018-07-16] MEDS: LISINOPRIL 5 MG TAB PO (08:17)
[2018-07-16] MEDS: ASCORBIC ACID 500 MG TAB PO (08:18)
[2018-07-16] MEDS: FUROSEMIDE 40 MG INJ IV (08:18)
[2018-07-16] MEDS: SPIRONOLACTONE 50 MG TAB PO (08:18)
[2018-07-16] MEDS: ZINC SULFATE 220 MG CAP PO (08:19)
[2018-07-16] MEDS: ASPIRIN (EC) 81 MG TAB PO (08:19)
[2018-07-16] MEDS: ENOXAPARIN 30 MG/0.3 ML SYG SC (08:31)
[2018-07-16 09:07] LABS: ALANINE AMINOTRANSFERASE 37 IU/L (13-69); ALBUMIN 3.8 g/dl (3.3-4.9); ALBUMIN/GLOBULIN RATIO 1.22; ALKALINE PHOSPHATASE 124 IU/L (42-121); ANION GAP 9 (5-13); ASPARTATE AMINO TRANSFERASE 47 IU/L (15-46); BILIRUBIN,INDIRECT 1.6 mg/dl (0-1.1); BILIRUBIN,TOTAL 1.6 mg/dl (0.2-1.3); BLOOD UREA NITROGEN 25 mg/dl (7-20); CALCIUM 9.8 mg/dl (8.4-10.2); CARBON DIOXIDE 33 mmol/L (21-31); CHLORIDE 95 mmol/L (97-110); CREATININE 1.02 mg/dl (0.61-1.24); Estimated GFR > 60 mL/min (>60); GLUCOSE 92 mg/dl (70-220); MAGNESIUM 2.2 mg/dl (1.7-2.5); POTASSIUM 4.3 mmol/L (3.5-5.1); SODIUM 137 mmol/L (135-144); TOTAL PROTEIN 6.9 g/dl (6.1-8.1)
== END 2018-07-16 13:41 | disposition home or self-care (01) | DRG 291 ==
LOC: TEL 07-15 17:19
PROC: 0W993ZZ Drainage of Right Pleural Cavity, Percutaneous Approach (ICD-10-PCS; principal; 2018-07-15)
DX: I11.0 Hypertensive heart disease with heart failure (principal); J18.9 Pneumonia, unspecified organism; N17.9 Acute kidney failure, unspecified; J90 Pleural effusion, not elsewhere classified; J44.0 Chronic obstructive pulmonary disease with (acute) lower respiratory infection; I50.43 Acute on chronic combined systolic (congestive) and diastolic (congestive) heart failure; K74.69 Other cirrhosis of liver; B19.20 Unspecified viral hepatitis C without hepatic coma; Z91.14 Patient's other noncompliance with medication regimen; F15.90 Other stimulant use, unspecified, uncomplicated; Z72.0 Tobacco use; N45.1 Epididymitis; I86.1 Scrotal varices; N49.2 Inflammatory disorders of scrotum
CPT/HCPCS: 71045; 76942; 80053; 80307; 81003; 83036; 83735; 83880; 84443; 85025; 85610; 85651; 85730; 86140; 87081; 94640; 94664; 97116; 97162; 97165; 97530

== ENCOUNTER 2018-08-29 23:21 | Inpatient (IN) | payer OTHER ==
[2018-08-30] MEDS: HYDROCODONE/APAP (5/325) TAB PO ×2 (00:24→06:14)
[2018-08-30] MEDS ORDERED: NACL 0.9% 3 ML SYG IV (00:30)
[2018-08-30] MEDS ORDERED: NITROGLYCERIN (SL) 0.4 MG TAB SL (00:30)
[2018-08-30] MEDS ORDERED: HYDROCODONE/APAP (5/325) TAB PO (00:30)
[2018-08-30] MEDS ORDERED: ONDANSETRON 4 MG INJ IV (00:30)
[2018-08-30] MEDS ORDERED: ACETAMINOPHEN 325 MG TAB PO (00:30)
[2018-08-30] MEDS: morphine 4 MG/ML VIAL IV (01:30)
[2018-08-30] MEDS: ALBUTEROL HFA 8 GM INHALER INH ×3 (03:17→12:53)
[2018-08-30 05:59] LABS: ADD MAN DIFF? NO
[2018-08-30 06:01] LABS: ABNORMAL IP MESSAGE 1; BASOPHIL # 0.1 10^3/ul (0.0-0.1); BASOPHILS % 1.1 % (0.0-2.0); EOSINOPHILS # 0.4 10^3/ul (0.0-0.5); EOSINOPHILS % 3.1 % (0.0-7.0); HEMATOCRIT 45.4 % (42.0-52.0); HEMOGLOBIN 13.1 g/dl (14.0-18.0); LYMPHOCYTES # 1.8 10^3/ul (0.8-2.9); LYMPHOCYTES % 14.7 % (15.0-51.0); MEAN CORPUSCULAR HEMOGLOBIN 24.2 pg (29.0-33.0); MEAN CORPUSCULAR HGB CONC 28.9 g/dl (32.0-37.0); MEAN CORPUSCULAR VOLUME 83.9 fl (82.0-101.0); MEAN PLATELET VOLUME 9.7 fl (7.4-10.4); MONOCYTE # 1.7 10^3/ul (0.3-0.9); MONOCYTES % 14.2 % (0.0-11.0); NEUTROPHILS % 66.4 % (39.0-77.0); PLATELET COUNT 320 10^3/UL (140-415); POSITIVE DIFF @See below; RED BLOOD COUNT 5.41 10^6/ul (4.70-6.10); RED CELL DISTRIBUTION WIDTH 21.2 % (11.5-14.5)
[2018-08-30 06:01] LABS: WHITE BLOOD COUNT 12.1 10^3/ul (4.8-10.8)
[2018-08-30] MEDS: FUROSEMIDE 40 MG TAB PO (06:09)
[2018-08-30 06:35] LABS: CREATINE KINASE 32 IU/L (23-200)
[2018-08-30 06:39] LABS: ALANINE AMINOTRANSFERASE 25 IU/L (13-69); ALBUMIN 3.6 g/dl (3.3-4.9); ALBUMIN/GLOBULIN RATIO 1.24; ALKALINE PHOSPHATASE 116 IU/L (42-121); ANION GAP 10 (5-13); ASPARTATE AMINO TRANSFERASE 20 IU/L (15-46); BILIRUBIN,INDIRECT 1.6 mg/dl (0-1.1); BILIRUBIN,TOTAL 1.6 mg/dl (0.2-1.3); BLOOD UREA NITROGEN 37 mg/dl (7-20); CALCIUM 9.8 mg/dl (8.4-10.2); CARBON DIOXIDE 29 mmol/L (21-31); CHLORIDE 97 mmol/L (97-110); CREATININE 1.54 mg/dl (0.61-1.24); Estimated GFR 48 mL/min (>60); GLUCOSE 95 mg/dl (70-220); POTASSIUM 5.1 mmol/L (3.5-5.1); SODIUM 136 mmol/L (135-144); TOTAL PROTEIN 6.5 g/dl (6.1-8.1)
[2018-08-30] MEDS: ALBUTEROL/IPRATROPIUM (NEB) 3 ML AMP HHN ×2 (06:42→11:28)
[2018-08-30 06:48] LABS: CK INDEX 7.8; TROPONIN-I 0.024 ng/ml (0.000-0.120)
[2018-08-30] MEDS: ASPIRIN (EC) 81 MG TAB PO (09:02)
[2018-08-30] MEDS: APIXABAN 5 MG TABLET PO (09:03)
[2018-08-30] MEDS: NICOTINE (21 MG/24 HR) PATCH TRANSDERM (09:03)
[2018-08-30] MEDS: HYDROCODONE/APAP (10/325) TAB PO (10:17)
[2018-08-30 11:12] LABS: CREATINE KINASE 30 IU/L (23-200)
[2018-08-30 11:26] LABS: CK INDEX 8.1; CK-MB 2.44 ng/ml (0.0-2.4); TROPONIN-I 0.022 ng/ml (0.000-0.120)
[2018-08-30 12:05] LABS: INR 1.58; PT RATIO 1.5
[2018-08-30 12:06] LABS: PARTIAL THROMBOPLASTIN TIME 47.8 Sec (23.0-35.0)
[2018-08-30] MEDS: DOCUSATE SODIUM 100 MG CAP PO ×2 (12:43→20:21)
[2018-08-30] MEDS: SPIRONOLACTONE 25 MG TAB PO (12:43)
[2018-08-30] MEDS: FAMOTIDINE 20 MG TAB PO ×2 (12:44→20:21)
[2018-08-30] MEDS: CEFEPIME 1GM/50 ML (PMX) 50 ML IVPB ×2 (12:44→20:21)
[2018-08-30] MEDS: morphine 2 MG INJ IV ×2 (12:53→17:09)
[2018-08-30] MEDS ORDERED: morphine 2 MG INJ IV (13:00)
[2018-08-30] MEDS ORDERED: LORAZEPAM 2 MG INJ IV (14:30)
[2018-08-30] MEDS: LIDOCAINE 1% (MPF) 5 ML VIAL (14:37)
[2018-08-30] MEDS: CHLORDIAZEPOXIDE 25 MG CAP PO ×3 (16:06→20:21)
[2018-08-30] MEDS: FUROSEMIDE 20 MG INJ IV (17:08)
[2018-08-31] MEDS: CHLORDIAZEPOXIDE 25 MG CAP PO ×5 (01:03→20:47)
[2018-08-31] MEDS: ALBUTEROL HFA 8 GM INHALER INH ×5 (01:03→19:34)
[2018-08-31] MEDS: morphine 2 MG INJ IV ×5 (01:04→17:32)
[2018-08-31] MEDS: FUROSEMIDE 20 MG INJ IV ×2 (05:09→17:33)
[2018-08-31 05:40] LABS: ADD MAN DIFF? NO
[2018-08-31 05:48] LABS: WHITE BLOOD COUNT 11.6 10^3/ul (4.8-10.8)
[2018-08-31 05:48] LABS: BASOPHIL # 0.1 10^3/ul (0.0-0.1); EOSINOPHILS # 0.3 10^3/ul (0.0-0.5); EOSINOPHILS % 2.7 % (0.0-7.0); HEMATOCRIT 47.1 % (42.0-52.0); LYMPHOCYTES # 1.4 10^3/ul (0.8-2.9); MEAN CORPUSCULAR HEMOGLOBIN 24.3 pg (29.0-33.0); MEAN CORPUSCULAR HGB CONC 29.7 g/dl (32.0-37.0); MEAN CORPUSCULAR VOLUME 81.8 fl (82.0-101.0); MEAN PLATELET VOLUME 9.5 fl (7.4-10.4); MONOCYTE # 1.1 10^3/ul (0.3-0.9); MONOCYTES % 9.5 % (0.0-11.0); NEUTROPHIL # 8.6 10^3/ul (1.6-7.5); NEUTROPHILS % 74.1 % (39.0-77.0); PLATELET COUNT 345 10^3/UL (140-415); RED BLOOD COUNT 5.76 10^6/ul (4.70-6.10); RED CELL DISTRIBUTION WIDTH 21.2 % (11.5-14.5)
[2018-08-31 06:35] LABS: ALANINE AMINOTRANSFERASE 21 IU/L (13-69); ALBUMIN 3.3 g/dl (3.3-4.9); ALKALINE PHOSPHATASE 111 IU/L (42-121); ASPARTATE AMINO TRANSFERASE 23 IU/L (15-46); BILIRUBIN,INDIRECT 1.3 mg/dl (0-1.1); BILIRUBIN,TOTAL 1.3 mg/dl (0.2-1.3); TOTAL PROTEIN 6.3 g/dl (6.1-8.1)
[2018-08-31 06:42] LABS: ANION GAP 16 (5-13); BLOOD UREA NITROGEN 48 mg/dl (7-20); CALCIUM 9.8 mg/dl (8.4-10.2); CARBON DIOXIDE 25 mmol/L (21-31); CHLORIDE 96 mmol/L (97-110); CREATININE 1.94 mg/dl (0.61-1.24); Estimated GFR 37 mL/min (>60); GLUCOSE 106 mg/dl (70-220); PHOSPHORUS 5.9 mg/dl (2.5-4.9); POTASSIUM 5.4 mmol/L (3.5-5.1); SODIUM 137 mmol/L (135-144)
[2018-08-31] MEDS: CEFEPIME 1GM/50 ML (PMX) 50 ML IVPB ×2 (09:20→20:46)
[2018-08-31] MEDS: SPIRONOLACTONE 25 MG TAB PO (09:21)
[2018-08-31] MEDS: DOCUSATE SODIUM 100 MG CAP PO ×2 (09:21→20:47)
[2018-08-31] MEDS: ASPIRIN (EC) 81 MG TAB PO (09:21)
[2018-08-31] MEDS: FAMOTIDINE 20 MG TAB PO ×2 (09:22→20:47)
[2018-08-31] MEDS: NICOTINE (21 MG/24 HR) PATCH TRANSDERM (09:23)
[2018-08-31] MEDS ORDERED: NA POLYST SULFON 15 GM/60 ML BTL PO (15:00)
[2018-08-31] MEDS: SODIUM POLYSTYRENE 15 GM KIT (POWDER + SORBITOL) PO (15:09)
[2018-08-31] MEDS: LORAZEPAM 2 MG INJ IV (19:32)
[2018-09-01] MEDS: ALBUTEROL HFA 8 GM INHALER INH ×4 (02:41→20:55)
[2018-09-01 05:34] LABS: ADD MAN DIFF? NO; BASOPHIL # 0.1 10^3/ul (0.0-0.1); BASOPHILS % 0.6 % (0.0-2.0); EOSINOPHILS # 0.4 10^3/ul (0.0-0.5); HEMATOCRIT 45.7 % (42.0-52.0); HEMOGLOBIN 13.7 g/dl (14.0-18.0); LYMPHOCYTES # 0.9 10^3/ul (0.8-2.9); LYMPHOCYTES % 8.3 % (15.0-51.0); MEAN CORPUSCULAR HEMOGLOBIN 24.7 pg (29.0-33.0); MEAN CORPUSCULAR VOLUME 82.5 fl (82.0-101.0); MEAN PLATELET VOLUME 9.9 fl (7.4-10.4); MONOCYTE # 0.8 10^3/ul (0.3-0.9); MONOCYTES % 7.7 % (0.0-11.0); NEUTROPHIL # 8.1 10^3/ul (1.6-7.5); NEUTROPHILS % 78.8 % (39.0-77.0); PLATELET COUNT 301 10^3/UL (140-415); RED BLOOD COUNT 5.54 10^6/ul (4.70-6.10); RED CELL DISTRIBUTION WIDTH 20.8 % (11.5-14.5)
[2018-09-01 05:34] LABS: WHITE BLOOD COUNT 10.3 10^3/ul (4.8-10.8)
[2018-09-01] MEDS: FUROSEMIDE 20 MG INJ IV ×2 (05:37→17:56)
[2018-09-01 05:57] LABS: ANION GAP 11 (5-13); Estimated GFR 45 mL/min (>60); INR 1.38; PROTIME 17.1 Sec (11.9-14.9); PT RATIO 1.3
[2018-09-01 05:59] LABS: BLOOD UREA NITROGEN 49 mg/dl (7-20); CALCIUM 9.3 mg/dl (8.4-10.2); CARBON DIOXIDE 29 mmol/L (21-31); CHLORIDE 94 mmol/L (97-110); CREATININE 1.62 mg/dl (0.61-1.24); GLUCOSE 110 mg/dl (70-220); MAGNESIUM 2.1 mg/dl (1.7-2.5); POTASSIUM 4.6 mmol/L (3.5-5.1); SODIUM 134 mmol/L (135-144)
[2018-09-01] MEDS: SPIRONOLACTONE 25 MG TAB PO (08:27)
[2018-09-01] MEDS: CHLORDIAZEPOXIDE 25 MG CAP PO ×3 (08:27→20:48)
[2018-09-01] MEDS: FAMOTIDINE 20 MG TAB PO ×2 (08:27→20:48)
[2018-09-01] MEDS: DOCUSATE SODIUM 100 MG CAP PO ×2 (08:29→20:48)
[2018-09-01] MEDS: ASPIRIN (EC) 81 MG TAB PO (08:29)
[2018-09-01] MEDS: morphine 2 MG INJ IV ×4 (08:32→20:46)
[2018-09-01] MEDS: CEFEPIME 1GM/50 ML (PMX) 50 ML IVPB ×2 (08:34→20:55)
[2018-09-01] MEDS: NICOTINE (21 MG/24 HR) PATCH TRANSDERM (08:41)
[2018-09-01] MEDS: LIDOCAINE 1% (MPF) 5 ML VIAL (10:59)
[2018-09-01 18:27] LABS: ADD UMIC NO; UR ASCORBIC ACID 20 mg/dL (NEGATIVE); UR BILIRUBIN (Dip) NEGATIVE (NEGATIVE); UR BLOOD (Dip) NEGATIVE (NEGATIVE); UR CLARITY CLEAR (CLEAR); UR COLOR YELLOW (YELLOW); UR GLUCOSE (Dip) NEGATIVE (NEGATIVE); UR KETONES (Dip) NEGATIVE (NEGATIVE); UR LEUKOCYTE ESTERASE (Dip) NEGATIVE Leu/ul (NEGATIVE); UR NITRITE (Dip) NEGATIVE (NEGATIVE); UR SPECIFIC GRAVITY (Dip) 1.014 (1.003-1.030); UR TOTAL PROTEIN (Dip) NEGATIVE (NEGATIVE); UR UROBILINOGEN (Dip) 1+ mg/dL (NEGATIVE)
[2018-09-01 18:38] LABS: CREATININE,URINE RANDOM 71.25 mg/dl (20-370)
[2018-09-01 18:40] LABS: SODIUM,URINE RANDOM < 13 mmol/L (30-90)
[2018-09-02] MEDS: LORAZEPAM 2 MG INJ IV (00:10)
[2018-09-02] MEDS: morphine 2 MG INJ IV ×3 (03:51→21:34)
[2018-09-02] MEDS: ALBUTEROL HFA 8 GM INHALER INH ×4 (03:52→20:00)
[2018-09-02] MEDS: ALBUTEROL/IPRATROPIUM (NEB) 3 ML AMP HHN ×4 (04:17→20:19)
[2018-09-02] MEDS: FUROSEMIDE 20 MG INJ IV (05:27)
[2018-09-02 05:34] LABS: ADD MAN DIFF? NO
[2018-09-02 05:38] LABS: BASOPHILS % 0.3 % (0.0-2.0); EOSINOPHILS # 0.3 10^3/ul (0.0-0.5); EOSINOPHILS % 2.4 % (0.0-7.0); HEMATOCRIT 42.9 % (42.0-52.0); HEMOGLOBIN 12.9 g/dl (14.0-18.0); LYMPHOCYTES # 0.7 10^3/ul (0.8-2.9); LYMPHOCYTES % 5.4 % (15.0-51.0); MEAN CORPUSCULAR HEMOGLOBIN 24.6 pg (29.0-33.0); MEAN CORPUSCULAR HGB CONC 30.1 g/dl (32.0-37.0); MEAN CORPUSCULAR VOLUME 81.9 fl (82.0-101.0); MEAN PLATELET VOLUME 9.7 fl (7.4-10.4); MONOCYTES % 7.4 % (0.0-11.0); NEUTROPHIL # 10.8 10^3/ul (1.6-7.5); NEUTROPHILS % 84.1 % (39.0-77.0); PLATELET COUNT 281 10^3/UL (140-415); RED BLOOD COUNT 5.24 10^6/ul (4.70-6.10); RED CELL DISTRIBUTION WIDTH 20.2 % (11.5-14.5)
[2018-09-02 05:38] LABS: WHITE BLOOD COUNT 12.9 10^3/ul (4.8-10.8)
[2018-09-02 06:11] LABS: ANION GAP 7 (5-13); BLOOD UREA NITROGEN 41 mg/dl (7-20); CALCIUM 8.5 mg/dl (8.4-10.2); CARBON DIOXIDE 30 mmol/L (21-31); CHLORIDE 95 mmol/L (97-110); CREATININE 1.08 mg/dl (0.61-1.24); Estimated GFR > 60 mL/min (>60); GLUCOSE 99 mg/dl (70-220); POTASSIUM 4.5 mmol/L (3.5-5.1); SODIUM 132 mmol/L (135-144)
[2018-09-02 07:37] LABS: MAGNESIUM 1.9 mg/dl (1.7-2.5)
[2018-09-02 07:37] LABS: PHOSPHORUS 3.6 mg/dl (2.5-4.9)
[2018-09-02] MEDS: ISOSORBIDE DINITRATE 10 MG TAB PO ×3 (09:00→20:50)
[2018-09-02] MEDS: CEFEPIME 1GM/50 ML (PMX) 50 ML IVPB ×2 (09:07→20:51)
[2018-09-02] MEDS: NICOTINE (21 MG/24 HR) PATCH TRANSDERM (09:08)
[2018-09-02] MEDS: DOCUSATE SODIUM 100 MG CAP PO ×2 (09:09→20:51)
[2018-09-02] MEDS: CHLORDIAZEPOXIDE 25 MG CAP PO ×2 (09:10→12:48)
[2018-09-02] MEDS: ASPIRIN (EC) 81 MG TAB PO (09:10)
[2018-09-02] MEDS: SPIRONOLACTONE 25 MG TAB PO (09:10)
[2018-09-02] MEDS: FAMOTIDINE 20 MG TAB PO ×2 (09:10→20:50)
[2018-09-02] MEDS: APIXABAN 5 MG TABLET PO ×2 (12:48→20:49)
[2018-09-02 14:01] LABS: CREATININE, RANDOM URINE 71 mg/dL (20-320); MICROALBUMIN 0.7 mg/dL; MICROALBUMIN/CREATININE RATIO 10 (<30)
[2018-09-02] MEDS: FUROSEMIDE 40 MG INJ IV (18:01)
[2018-09-03] MEDS: ALBUTEROL/IPRATROPIUM (NEB) 3 ML AMP HHN ×4 (01:23→20:39)
[2018-09-03] MEDS: ALBUTEROL HFA 8 GM INHALER INH ×4 (01:36→20:00)
[2018-09-03] MEDS: morphine 2 MG INJ IV ×6 (01:36→23:09)
[2018-09-03] MEDS: FUROSEMIDE 40 MG INJ IV ×2 (06:19→17:32)
[2018-09-03 07:51] LABS: ADD MAN DIFF? NO
[2018-09-03 07:57] LABS: ABNORMAL IP MESSAGE 1; BASOPHILS % 0.2 % (0.0-2.0); EOSINOPHILS # 0.5 10^3/ul (0.0-0.5); EOSINOPHILS % 4.5 % (0.0-7.0); HEMATOCRIT 48.7 % (42.0-52.0); LYMPHOCYTES % 8.1 % (15.0-51.0); MEAN CORPUSCULAR HEMOGLOBIN 24.1 pg (29.0-33.0); MEAN CORPUSCULAR HGB CONC 28.7 g/dl (32.0-37.0); MEAN CORPUSCULAR VOLUME 83.8 fl (82.0-101.0); MEAN PLATELET VOLUME 9.4 fl (7.4-10.4); MONOCYTE # 1.3 10^3/ul (0.3-0.9); MONOCYTES % 10.4 % (0.0-11.0); NEUTROPHIL # 9.2 10^3/ul (1.6-7.5); NEUTROPHILS % 76.2 % (39.0-77.0); PLATELET COUNT 259 10^3/UL (140-415); POSITIVE DIFF @See below; RED BLOOD COUNT 5.81 10^6/ul (4.70-6.10); RED CELL DISTRIBUTION WIDTH 20.9 % (11.5-14.5)
[2018-09-03 08:13] LABS: ANION GAP 9 (5-13); BLOOD UREA NITROGEN 27 mg/dl (7-20); CALCIUM 8.7 mg/dl (8.4-10.2); CARBON DIOXIDE 30 mmol/L (21-31); CHLORIDE 95 mmol/L (97-110); CREATININE 0.86 mg/dl (0.61-1.24); Estimated GFR > 60 mL/min (>60); GLUCOSE 93 mg/dl (70-220); POTASSIUM 4.7 mmol/L (3.5-5.1); SODIUM 134 mmol/L (135-144)
[2018-09-03] MEDS: CEFEPIME 1GM/50 ML (PMX) 50 ML IVPB ×2 (08:25→21:10)
[2018-09-03] MEDS: NICOTINE (21 MG/24 HR) PATCH TRANSDERM (08:25)
[2018-09-03] MEDS: FAMOTIDINE 20 MG TAB PO ×2 (08:26→21:12)
[2018-09-03] MEDS: DOCUSATE SODIUM 100 MG CAP PO ×2 (08:26→21:10)
[2018-09-03] MEDS: SPIRONOLACTONE 25 MG TAB PO (08:26)
[2018-09-03] MEDS: ISOSORBIDE DINITRATE 10 MG TAB PO ×3 (08:27→21:12)
[2018-09-03] MEDS: ASPIRIN (EC) 81 MG TAB PO (08:27)
[2018-09-03 08:39] LABS: PHOSPHORUS 3.2 mg/dl (2.5-4.9)
[2018-09-03 08:39] LABS: MAGNESIUM 1.9 mg/dl (1.7-2.5)
[2018-09-03] MEDS: APIXABAN 5 MG TABLET PO ×2 (12:18→21:12)
[2018-09-04] MEDS: ALBUTEROL/IPRATROPIUM (NEB) 3 ML AMP HHN ×3 (01:55→21:53)
[2018-09-04] MEDS: ALBUTEROL HFA 8 GM INHALER INH ×4 (02:00→20:03)
[2018-09-04] MEDS: LORAZEPAM 2 MG INJ IV (02:26)
[2018-09-04 05:20] LABS: ADD MAN DIFF? NO
[2018-09-04 05:38] LABS: WHITE BLOOD COUNT 9.4 10^3/ul (4.8-10.8)
[2018-09-04 05:38] LABS: BASOPHILS % 0.3 % (0.0-2.0); EOSINOPHILS # 0.7 10^3/ul (0.0-0.5); EOSINOPHILS % 7.1 % (0.0-7.0); HEMATOCRIT 43.1 % (42.0-52.0); HEMOGLOBIN 12.6 g/dl (14.0-18.0); LYMPHOCYTES # 1.1 10^3/ul (0.8-2.9); MEAN CORPUSCULAR HEMOGLOBIN 24.4 pg (29.0-33.0); MEAN CORPUSCULAR HGB CONC 29.2 g/dl (32.0-37.0); MEAN CORPUSCULAR VOLUME 83.4 fl (82.0-101.0); MEAN PLATELET VOLUME 9.4 fl (7.4-10.4); MONOCYTE # 1.2 10^3/ul (0.3-0.9); MONOCYTES % 12.9 % (0.0-11.0); NEUTROPHIL # 6.3 10^3/ul (1.6-7.5); PLATELET COUNT 266 10^3/UL (140-415); RED BLOOD COUNT 5.17 10^6/ul (4.70-6.10); RED CELL DISTRIBUTION WIDTH 19.8 % (11.5-14.5)
[2018-09-04 05:56] LABS: ANION GAP 7 (5-13); BLOOD UREA NITROGEN 23 mg/dl (7-20); CALCIUM 8.8 mg/dl (8.4-10.2); CARBON DIOXIDE 33 mmol/L (21-31); CHLORIDE 94 mmol/L (97-110); CREATININE 0.84 mg/dl (0.61-1.24); Estimated GFR > 60 mL/min (>60); GLUCOSE 105 mg/dl (70-220); MAGNESIUM 1.9 mg/dl (1.7-2.5); PHOSPHORUS 3.2 mg/dl (2.5-4.9); POTASSIUM 4.8 mmol/L (3.5-5.1); SODIUM 134 mmol/L (135-144)
[2018-09-04] MEDS: FUROSEMIDE 40 MG INJ IV ×2 (06:18→17:55)
[2018-09-04] MEDS: SPIRONOLACTONE 25 MG TAB PO (08:49)
[2018-09-04] MEDS: APIXABAN 5 MG TABLET PO (08:49)
[2018-09-04] MEDS: FAMOTIDINE 20 MG TAB PO ×2 (08:49→20:35)
[2018-09-04] MEDS: ASPIRIN (EC) 81 MG TAB PO (08:49)
[2018-09-04] MEDS: DOCUSATE SODIUM 100 MG CAP PO ×2 (08:49→20:34)
[2018-09-04] MEDS: CEFEPIME 1GM/50 ML (PMX) 50 ML IVPB ×2 (08:50→20:33)
[2018-09-04] MEDS: NICOTINE (21 MG/24 HR) PATCH TRANSDERM (08:53)
[2018-09-04] MEDS: ISOSORBIDE DINITRATE 10 MG TAB PO ×3 (08:54→20:35)
[2018-09-04] MEDS: morphine 2 MG INJ IV ×4 (09:01→23:26)
[2018-09-04] MEDS: ACETAZOLAMIDE 500 MG INJ IV (10:08)
[2018-09-04] MEDS: LISINOPRIL 5 MG TAB PO (14:25)
[2018-09-05] MEDS: LORAZEPAM 2 MG INJ IV (01:14)
[2018-09-05] MEDS: ALBUTEROL HFA 8 GM INHALER INH ×5 (02:00→21:50)
[2018-09-05] MEDS: morphine 2 MG INJ IV ×4 (03:47→20:14)
[2018-09-05 05:12] LABS: ADD MAN DIFF? NO
[2018-09-05 05:23] LABS: WHITE BLOOD COUNT 9.6 10^3/ul (4.8-10.8)
[2018-09-05 05:23] LABS: BASOPHIL # 0.1 10^3/ul (0.0-0.1); BASOPHILS % 0.5 % (0.0-2.0); EOSINOPHILS # 0.9 10^3/ul (0.0-0.5); EOSINOPHILS % 9.2 % (0.0-7.0); HEMATOCRIT 43.4 % (42.0-52.0); HEMOGLOBIN 12.6 g/dl (14.0-18.0); LYMPHOCYTES % 10.8 % (15.0-51.0); MEAN CORPUSCULAR HEMOGLOBIN 24.5 pg (29.0-33.0); MEAN CORPUSCULAR VOLUME 84.3 fl (82.0-101.0); MEAN PLATELET VOLUME 9.5 fl (7.4-10.4); MONOCYTE # 1.1 10^3/ul (0.3-0.9); MONOCYTES % 11.4 % (0.0-11.0); NEUTROPHIL # 6.5 10^3/ul (1.6-7.5); NEUTROPHILS % 67.6 % (39.0-77.0); PLATELET COUNT 236 10^3/UL (140-415); RED BLOOD COUNT 5.15 10^6/ul (4.70-6.10); RED CELL DISTRIBUTION WIDTH 19.9 % (11.5-14.5)
[2018-09-05] MEDS: FUROSEMIDE 40 MG INJ IV ×2 (05:42→17:51)
[2018-09-05 05:49] LABS: ANION GAP 7 (5-13); BLOOD UREA NITROGEN 22 mg/dl (7-20); CALCIUM 9.1 mg/dl (8.4-10.2); CARBON DIOXIDE 32 mmol/L (21-31); CHLORIDE 97 mmol/L (97-110); CREATININE 1.03 mg/dl (0.61-1.24); Estimated GFR > 60 mL/min (>60); GLUCOSE 99 mg/dl (70-220); MAGNESIUM 2.2 mg/dl (1.7-2.5); PHOSPHORUS 3.7 mg/dl (2.5-4.9); POTASSIUM 4.4 mmol/L (3.5-5.1); SODIUM 136 mmol/L (135-144)
[2018-09-05] MEDS: ACETAZOLAMIDE 500 MG INJ IV (09:26)
[2018-09-05] MEDS: SPIRONOLACTONE 25 MG TAB PO (09:27)
[2018-09-05] MEDS: ASPIRIN (EC) 81 MG TAB PO (09:27)
[2018-09-05] MEDS: FAMOTIDINE 20 MG TAB PO ×2 (09:27→20:12)
[2018-09-05] MEDS: DOCUSATE SODIUM 100 MG CAP PO ×2 (09:27→20:13)
[2018-09-05] MEDS: CEFEPIME 1GM/50 ML (PMX) 50 ML IVPB ×2 (09:28→20:12)
[2018-09-05] MEDS: ISOSORBIDE DINITRATE 10 MG TAB PO ×3 (09:28→20:12)
[2018-09-05] MEDS: NICOTINE (21 MG/24 HR) PATCH TRANSDERM (09:29)
[2018-09-05] MEDS: ALBUTEROL/IPRATROPIUM (NEB) 3 ML AMP HHN (13:53)
[2018-09-05] MEDS: ENOXAPARIN 100 MG/ML SYG SC ×2 (14:00→23:28)
[2018-09-05] MEDS: LIDOCAINE 1% (MPF) 5 ML VIAL (15:23)
[2018-09-06] MEDS: morphine 2 MG INJ IV ×4 (00:21→13:40)
[2018-09-06] MEDS: ALBUTEROL HFA 8 GM INHALER INH ×3 (02:00→14:00)
[2018-09-06 05:37] LABS: ADD MAN DIFF? NO
[2018-09-06 05:56] LABS: BASOPHILS % 0.3 % (0.0-2.0); EOSINOPHILS # 0.9 10^3/ul (0.0-0.5); EOSINOPHILS % 9.2 % (0.0-7.0); HEMOGLOBIN 12.8 g/dl (14.0-18.0); LYMPHOCYTES # 1.1 10^3/ul (0.8-2.9); MEAN CORPUSCULAR HEMOGLOBIN 24.1 pg (29.0-33.0); MEAN CORPUSCULAR HGB CONC 29.1 g/dl (32.0-37.0); MEAN CORPUSCULAR VOLUME 82.9 fl (82.0-101.0); MEAN PLATELET VOLUME 9.3 fl (7.4-10.4); MONOCYTE # 0.9 10^3/ul (0.3-0.9); MONOCYTES % 9.3 % (0.0-11.0); NEUTROPHIL # 6.8 10^3/ul (1.6-7.5); NEUTROPHILS % 69.8 % (39.0-77.0); PLATELET COUNT 243 10^3/UL (140-415); RED BLOOD COUNT 5.31 10^6/ul (4.70-6.10); RED CELL DISTRIBUTION WIDTH 19.9 % (11.5-14.5)
[2018-09-06 05:56] LABS: WHITE BLOOD COUNT 9.8 10^3/ul (4.8-10.8)
[2018-09-06] MEDS: FUROSEMIDE 40 MG INJ IV (06:17)
[2018-09-06 06:25] LABS: ANION GAP 7 (5-13); BLOOD UREA NITROGEN 22 mg/dl (7-20); CALCIUM 9.1 mg/dl (8.4-10.2); CARBON DIOXIDE 30 mmol/L (21-31); CHLORIDE 102 mmol/L (97-110); CREATININE 0.99 mg/dl (0.61-1.24); Estimated GFR > 60 mL/min (>60); GLUCOSE 123 mg/dl (70-220); MAGNESIUM 2.2 mg/dl (1.7-2.5); POTASSIUM 4.1 mmol/L (3.5-5.1); SODIUM 139 mmol/L (135-144)
[2018-09-06] MEDS: ALBUTEROL/IPRATROPIUM (NEB) 3 ML AMP HHN (06:33)
[2018-09-06] MEDS: ISOSORBIDE DINITRATE 10 MG TAB PO ×2 (09:00→13:46)
[2018-09-06] MEDS: ASPIRIN (EC) 81 MG TAB PO (09:30)
[2018-09-06] MEDS: FAMOTIDINE 20 MG TAB PO (09:31)
[2018-09-06] MEDS: SPIRONOLACTONE 25 MG TAB PO (09:31)
[2018-09-06] MEDS: NICOTINE (21 MG/24 HR) PATCH TRANSDERM (09:31)
[2018-09-06] MEDS: ACETAZOLAMIDE 500 MG INJ IV (09:31)
[2018-09-06] MEDS: CEFEPIME 1GM/50 ML (PMX) 50 ML IVPB (09:31)
[2018-09-06] MEDS: DOCUSATE SODIUM 100 MG CAP PO (09:31)
[2018-09-06] MEDS: ENOXAPARIN 100 MG/ML SYG SC (09:45)
== END 2018-09-06 18:35 | disposition left against medical advice (07) | DRG 871 ==
LOC: 2NE 09-02 19:43
PROC: 0W9930Z Drainage of Right Pleural Cavity with Drainage Device, Percutaneous Approach (ICD-10-PCS; principal; 2018-08-30)
PROC: 0W9G3ZZ Drainage of Peritoneal Cavity, Percutaneous Approach (ICD-10-PCS; 2018-09-01)
PROC: 0W993ZZ Drainage of Right Pleural Cavity, Percutaneous Approach (ICD-10-PCS; 2018-09-05)
DX: A41.9 Sepsis, unspecified organism (principal); I50.23 Acute on chronic systolic (congestive) heart failure; J18.9 Pneumonia, unspecified organism; J96.00 Acute respiratory failure, unspecified whether with hypoxia or hypercapnia; I13.0 Hypertensive heart and chronic kidney disease with heart failure and stage 1 through stage 4 chronic kidney disease, or unspecified chronic kidney disease; J90 Pleural effusion, not elsewhere classified; N17.9 Acute kidney failure, unspecified; R18.8 Other ascites; F15.20 Other stimulant dependence, uncomplicated; J44.0 Chronic obstructive pulmonary disease with (acute) lower respiratory infection; R04.2 Hemoptysis; I42.9 Cardiomyopathy, unspecified; R65.20 Severe sepsis without septic shock; N18.3 Chronic kidney disease, stage 3 (moderate); Z86.711 Personal history of pulmonary embolism; Z86.718 Personal history of other venous thrombosis and embolism; B19.20 Unspecified viral hepatitis C without hepatic coma; Z91.14 Patient's other noncompliance with medication regimen; K74.60 Unspecified cirrhosis of liver; F17.200 Nicotine dependence, unspecified, uncomplicated; E80.6 Other disorders of bilirubin metabolism; Z91.19 Patient's noncompliance with other medical treatment and regimen
CPT/HCPCS: 71045; 71250; 76942; 80048; 80053; 80076; 81003; 82043; 82550; 82553; 83735; 84100; 84155; 84300; 84484; 85025; 85610; 85730; 87081; 93005; 94640; 94664; 97161

== ENCOUNTER 2018-10-17 20:25 | Inpatient (IN) | payer OTHER ==
[2018-10-17] MEDS ORDERED: DOCUSATE SODIUM 100 MG CAP PO (22:30)
[2018-10-17] MEDS ORDERED: NACL 0.9% 3 ML SYG IV (22:30)
[2018-10-17] MEDS ORDERED: NITROGLYCERIN (SL) 0.4 MG TAB SL (22:30)
[2018-10-17] MEDS ORDERED: BISACODYL (EC) 5 MG TAB PO (22:30)
[2018-10-17] MEDS ORDERED: ACETAMINOPHEN 325 MG TAB PO (22:30)
[2018-10-17 23:11] LABS: ADD MAN DIFF? NO
[2018-10-17 23:12] LABS: BASOPHILS % 0.3 % (0.0-2.0); EOSINOPHILS # 0.1 10^3/ul (0.0-0.5); EOSINOPHILS % 1.1 % (0.0-7.0); HEMATOCRIT 46.5 % (42.0-52.0); HEMOGLOBIN 13.9 g/dl (14.0-18.0); LYMPHOCYTES # 0.9 10^3/ul (0.8-2.9); LYMPHOCYTES % 8.2 % (15.0-51.0); MEAN CORPUSCULAR HEMOGLOBIN 24.2 pg (29.0-33.0); MEAN CORPUSCULAR HGB CONC 29.9 g/dl (32.0-37.0); MEAN PLATELET VOLUME 9.8 fl (7.4-10.4); MONOCYTE # 0.9 10^3/ul (0.3-0.9); MONOCYTES % 7.8 % (0.0-11.0); NEUTROPHIL # 9.4 10^3/ul (1.6-7.5); PLATELET COUNT 421 10^3/UL (140-415); RED BLOOD COUNT 5.74 10^6/ul (4.70-6.10); RED CELL DISTRIBUTION WIDTH 19.7 % (11.5-14.5)
[2018-10-17 23:12] LABS: WHITE BLOOD COUNT 11.5 10^3/ul (4.8-10.8)
[2018-10-17 23:32] LABS: ALANINE AMINOTRANSFERASE 23 IU/L (13-69); ALBUMIN 3.7 g/dl (3.3-4.9); ALBUMIN/GLOBULIN RATIO 1.02; ALKALINE PHOSPHATASE 191 IU/L (42-121); ANION GAP 13 (5-13); ASPARTATE AMINO TRANSFERASE 26 IU/L (15-46); BILIRUBIN,INDIRECT 0.6 mg/dl (0-1.1); BILIRUBIN,TOTAL 0.6 mg/dl (0.2-1.3); BLOOD UREA NITROGEN 40 mg/dl (7-20); CALCIUM 9.1 mg/dl (8.4-10.2); CARBON DIOXIDE 31 mmol/L (21-31); CHLORIDE 92 mmol/L (97-110); CREATININE 1.09 mg/dl (0.61-1.24); Estimated GFR > 60 mL/min (>60); GLUCOSE 128 mg/dl (70-220); POTASSIUM 3.8 mmol/L (3.5-5.1); SODIUM 136 mmol/L (135-144); TOTAL PROTEIN 7.3 g/dl (6.1-8.1)
[2018-10-17 23:40] LABS: ETHANOL < 10.0 mg/dl (0-0)
[2018-10-17 23:41] LABS: B-TYPE NATRIURETIC PEPTIDE 11000 PG/ML (0-125)
[2018-10-18] MEDS: FUROSEMIDE 40 MG TAB PO (00:34)
[2018-10-18] MEDS: ENOXAPARIN 100 MG/ML SYG SC ×3 (00:37→21:32)
[2018-10-18] MEDS: HYDROCODONE/APAP (5/325) TAB PO ×3 (00:53→22:16)
[2018-10-18] MEDS ORDERED: BUMETANIDE 1 MG INJ IV (03:30)
[2018-10-18] MEDS: BUMETANIDE 2 MG in DEXTROSE 5% 17 ML IV ×2 (04:32→18:17)
[2018-10-18 05:31] LABS: ADD MAN DIFF? NO
[2018-10-18 05:38] LABS: WHITE BLOOD COUNT 10.8 10^3/ul (4.8-10.8)
[2018-10-18 05:38] LABS: BASOPHILS % 0.4 % (0.0-2.0); EOSINOPHILS # 0.2 10^3/ul (0.0-0.5); EOSINOPHILS % 1.5 % (0.0-7.0); HEMATOCRIT 44.5 % (42.0-52.0); HEMOGLOBIN 13.1 g/dl (14.0-18.0); LYMPHOCYTES # 1.1 10^3/ul (0.8-2.9); LYMPHOCYTES % 9.8 % (15.0-51.0); MEAN CORPUSCULAR HEMOGLOBIN 23.9 pg (29.0-33.0); MEAN CORPUSCULAR HGB CONC 29.4 g/dl (32.0-37.0); MEAN CORPUSCULAR VOLUME 81.1 fl (82.0-101.0); MEAN PLATELET VOLUME 9.9 fl (7.4-10.4); MONOCYTE # 0.8 10^3/ul (0.3-0.9); MONOCYTES % 7.6 % (0.0-11.0); NEUTROPHIL # 8.6 10^3/ul (1.6-7.5); PLATELET COUNT 385 10^3/UL (140-415); RED BLOOD COUNT 5.49 10^6/ul (4.70-6.10); RED CELL DISTRIBUTION WIDTH 19.6 % (11.5-14.5)
[2018-10-18 05:55] LABS: INR 2.26
[2018-10-18 05:56] LABS: PARTIAL THROMBOPLASTIN TIME 48.5 Sec (23.0-35.0)
[2018-10-18 06:07] LABS: ALANINE AMINOTRANSFERASE 29 IU/L (13-69); ALBUMIN 3.2 g/dl (3.3-4.9); ALBUMIN/GLOBULIN RATIO 0.88; ALKALINE PHOSPHATASE 192 IU/L (42-121); ANION GAP 8 (5-13); ASPARTATE AMINO TRANSFERASE 26 IU/L (15-46); BILIRUBIN,INDIRECT 0.6 mg/dl (0-1.1); BILIRUBIN,TOTAL 0.6 mg/dl (0.2-1.3); BLOOD UREA NITROGEN 39 mg/dl (7-20); CARBON DIOXIDE 34 mmol/L (21-31); CHLORIDE 95 mmol/L (97-110); CREATININE 1.06 mg/dl (0.61-1.24); Estimated GFR > 60 mL/min (>60); GLUCOSE 114 mg/dl (70-220); POTASSIUM 3.9 mmol/L (3.5-5.1); SODIUM 137 mmol/L (135-144); TOTAL PROTEIN 6.8 g/dl (6.1-8.1)
[2018-10-18] MEDS: LORAZEPAM 2 MG INJ IV (06:57)
[2018-10-18] MEDS: BALSAM PERU/CASTOR OIL 60 GM TUBE TOP (08:31)
[2018-10-18] MEDS: NICOTINE (21 MG/24 HR) PATCH TRANSDERM (08:32)
[2018-10-18] MEDS: ISOSORBIDE DINITRATE 10 MG TAB PO ×3 (08:32→21:30)
[2018-10-18] MEDS: FAMOTIDINE 20 MG TAB PO ×2 (08:32→21:30)
[2018-10-18] MEDS: DOCUSATE SODIUM 100 MG CAP PO ×2 (08:33→21:29)
[2018-10-18] MEDS: SPIRONOLACTONE 25 MG TAB PO (08:33)
[2018-10-18] MEDS ORDERED: RIVAROXABAN 15 MG TABLET PO (09:00)
[2018-10-18 09:11] LABS: AMMONIA 20 umol/l (9-30)
[2018-10-18 10:12] LABS: BARBITURATES NEGATIVE (NEGATIVE); BENZODIAZEPINES NEGATIVE (NEGATIVE); CANNABINOIDS POSITIVE (NEGATIVE); COCAINE NEGATIVE (NEGATIVE)
[2018-10-18 10:15] LABS: AMPHETAMINE/METHAMPHETAMINE POSITIVE (NEGATIVE); OPIATES POSITIVE (NEGATIVE)
[2018-10-18] MEDS: IPRATROPIUM (NEB) 0.5 MG/2.5 ML AMP HHN ×2 (16:42→19:59)
[2018-10-18] MEDS ORDERED: RIVAROXABAN 20 MG TABLET PO (18:00)
[2018-10-19] MEDS: LORAZEPAM 2 MG INJ IV ×3 (00:45→21:34)
[2018-10-19] MEDS: IPRATROPIUM (NEB) 0.5 MG/2.5 ML AMP HHN ×3 (01:44→13:04)
[2018-10-19] MEDS: BUMETANIDE 2 MG in DEXTROSE 5% 17 ML IV (05:36)
[2018-10-19 06:13] LABS: ADD MAN DIFF? NO
[2018-10-19 06:24] LABS: BASOPHIL # 0.1 10^3/ul (0.0-0.1); BASOPHILS % 0.6 % (0.0-2.0); EOSINOPHILS # 0.1 10^3/ul (0.0-0.5); EOSINOPHILS % 0.6 % (0.0-7.0); HEMATOCRIT 44.2 % (42.0-52.0); HEMOGLOBIN 12.9 g/dl (14.0-18.0); LYMPHOCYTES # 1.3 10^3/ul (0.8-2.9); LYMPHOCYTES % 11.7 % (15.0-51.0); MEAN CORPUSCULAR HEMOGLOBIN 24.4 pg (29.0-33.0); MEAN CORPUSCULAR HGB CONC 29.2 g/dl (32.0-37.0); MEAN CORPUSCULAR VOLUME 83.6 fl (82.0-101.0); MEAN PLATELET VOLUME 10.2 fl (7.4-10.4); MONOCYTE # 1.1 10^3/ul (0.3-0.9); MONOCYTES % 9.9 % (0.0-11.0); NEUTROPHIL # 8.7 10^3/ul (1.6-7.5); NEUTROPHILS % 76.5 % (39.0-77.0); PLATELET COUNT 541 10^3/UL (140-415); RED BLOOD COUNT 5.29 10^6/ul (4.70-6.10); RED CELL DISTRIBUTION WIDTH 20.2 % (11.5-14.5)
[2018-10-19 06:24] LABS: WHITE BLOOD COUNT 11.4 10^3/ul (4.8-10.8)
[2018-10-19 06:53] LABS: ALANINE AMINOTRANSFERASE 25 IU/L (13-69); ALBUMIN 3.5 g/dl (3.3-4.9); ALBUMIN/GLOBULIN RATIO 0.89; ALKALINE PHOSPHATASE 193 IU/L (42-121); ANION GAP 14 (5-13); ASPARTATE AMINO TRANSFERASE 29 IU/L (15-46); BILIRUBIN,INDIRECT 0.9 mg/dl (0-1.1); BILIRUBIN,TOTAL 0.9 mg/dl (0.2-1.3); BLOOD UREA NITROGEN 39 mg/dl (7-20); CALCIUM 9.2 mg/dl (8.4-10.2); CARBON DIOXIDE 31 mmol/L (21-31); CHLORIDE 90 mmol/L (97-110); CREATININE 1.46 mg/dl (0.61-1.24); Estimated GFR 51 mL/min (>60); GLUCOSE 102 mg/dl (70-220); SODIUM 135 mmol/L (135-144); TOTAL PROTEIN 7.4 g/dl (6.1-8.1)
[2018-10-19] MEDS: HYDROCODONE/APAP (5/325) TAB PO (08:31)
[2018-10-19] MEDS: FAMOTIDINE 20 MG TAB PO ×2 (08:31→20:47)
[2018-10-19] MEDS: SPIRONOLACTONE 25 MG TAB PO (08:32)
[2018-10-19] MEDS: ISOSORBIDE DINITRATE 10 MG TAB PO ×3 (08:32→20:47)
[2018-10-19] MEDS: DOCUSATE SODIUM 100 MG CAP PO ×2 (08:32→20:46)
[2018-10-19] MEDS: NICOTINE (21 MG/24 HR) PATCH TRANSDERM (08:33)
[2018-10-19] MEDS: BALSAM PERU/CASTOR OIL 60 GM TUBE TOP (08:34)
[2018-10-19] MEDS: ENOXAPARIN 100 MG/ML SYG SC (08:43)
[2018-10-19] MEDS: LIDOCAINE 2% (SDV) 5 ML INJ (12:07)
[2018-10-19] MEDS: LIDOCAINE 1% (MPF) 5 ML VIAL (12:08)
[2018-10-19] MEDS: ONDANSETRON 4 MG INJ IV (15:27)
[2018-10-19] MEDS: LEVALBUTEROL (NEB) 0.63 MG/3 ML AMP HHN (16:15)
[2018-10-19] MEDS ORDERED: BUMETANIDE 1 MG INJ IV ×3 (16:30→18:00)
[2018-10-19] MEDS: BUMETANIDE 1 MG INJ IV (16:59)
[2018-10-19 19:27] LABS: AADO2 Arterial 487.1 mmHg (7.0-24.0); Arterial Base Excess -6.6 mmol/L (-3.0-3); Arterial Blood Gas Oxygen Sat 99.1 mmHG (95.0-98.0); Arterial COHb 1.1 % (0.0-3.0); Arterial Fraction of Oxyhgb 97.7 % (93.0-99.0); Arterial HCO3 20.9 mmol/L (22.0-26.0); Arterial MetHb 0.3 % (0.0-1.5); Arterial pCO2 49.1 mmhg (35-45); MODE MASK - NRB; Site Right Brachial
[2018-10-19] MEDS ORDERED: DEXTROSE 50% 50 ML SYRINGE (19:57)
[2018-10-19] MEDS ORDERED: NALOXONE (0.4 MG/ML) INJ (20:28)
[2018-10-19] MEDS: NALOXONE (0.4 MG/ML) INJ IV ×2 (20:37)
[2018-10-19] MEDS: DEXTROSE 50% 50 ML SYRINGE IV ×2 (20:37→20:53)
[2018-10-19] MEDS ORDERED: FLUMAZENIL 0.5 MG INJ (20:55)
[2018-10-19 21:00] LABS: AADO2 Arterial 148.7 mmHg (7.0-24.0); Arterial Base Excess -2.6 mmol/L (-3.0-3); Arterial COHb 1.1 % (0.0-3.0); Arterial Fraction of Oxyhgb 91.7 % (93.0-99.0); Arterial HCO3 23.7 mmol/L (22.0-26.0); Arterial MetHb 0.3 % (0.0-1.5); Arterial pCO2 46.7 mmhg (35-45); MODE NASAL CANNULA; Site Right Brachial
[2018-10-19 21:08] LABS: ADD MAN DIFF? NO
[2018-10-19 21:09] LABS: BASOPHIL # 0.1 10^3/ul (0.0-0.1); BASOPHILS % 0.4 % (0.0-2.0); EOSINOPHILS % 0.1 % (0.0-7.0); HEMATOCRIT 44.6 % (42.0-52.0); HEMOGLOBIN 13.2 g/dl (14.0-18.0); LYMPHOCYTES # 0.8 10^3/ul (0.8-2.9); MEAN CORPUSCULAR HEMOGLOBIN 24.5 pg (29.0-33.0); MEAN CORPUSCULAR HGB CONC 29.6 g/dl (32.0-37.0); MEAN CORPUSCULAR VOLUME 82.7 fl (82.0-101.0); MEAN PLATELET VOLUME 10.1 fl (7.4-10.4); MONOCYTE # 0.7 10^3/ul (0.3-0.9); MONOCYTES % 5.5 % (0.0-11.0); NEUTROPHIL # 10.3 10^3/ul (1.6-7.5); NEUTROPHILS % 86.1 % (39.0-77.0); PLATELET COUNT 496 10^3/UL (140-415); RED BLOOD COUNT 5.39 10^6/ul (4.70-6.10); RED CELL DISTRIBUTION WIDTH 20.1 % (11.5-14.5)
[2018-10-19] MEDS: FLUMAZENIL 0.5 MG INJ IV ×2 (21:24→21:34)
[2018-10-19 22:26] LABS: ANION GAP 17 (5-13); BLOOD UREA NITROGEN 48 mg/dl (7-20); CALCIUM 9.6 mg/dl (8.4-10.2); CARBON DIOXIDE 27 mmol/L (21-31); CHLORIDE 90 mmol/L (97-110); CREATININE 2.03 mg/dl (0.61-1.24); Estimated GFR 35 mL/min (>60); GLUCOSE 133 mg/dl (70-220); POTASSIUM 5.3 mmol/L (3.5-5.1); SODIUM 134 mmol/L (135-144)
[2018-10-20] MEDS: HALOPERIDOL 5 MG INJ IM (04:35)
[2018-10-20] MEDS: BUMETANIDE 1 MG INJ IV ×2 (05:06→18:23)
[2018-10-20 05:15] LABS: ADD MAN DIFF? NO
[2018-10-20 05:19] LABS: WHITE BLOOD COUNT 13.2 10^3/ul (4.8-10.8)
[2018-10-20 05:19] LABS: BASOPHILS % 0.3 % (0.0-2.0); EOSINOPHILS % 0.1 % (0.0-7.0); HEMATOCRIT 42.6 % (42.0-52.0); HEMOGLOBIN 12.8 g/dl (14.0-18.0); LYMPHOCYTES % 7.8 % (15.0-51.0); MEAN CORPUSCULAR HEMOGLOBIN 24.3 pg (29.0-33.0); MEAN CORPUSCULAR VOLUME 80.8 fl (82.0-101.0); MEAN PLATELET VOLUME 9.8 fl (7.4-10.4); MONOCYTE # 0.8 10^3/ul (0.3-0.9); MONOCYTES % 6.4 % (0.0-11.0); NEUTROPHIL # 11.2 10^3/ul (1.6-7.5); NEUTROPHILS % 84.8 % (39.0-77.0); PLATELET COUNT 396 10^3/UL (140-415); RED BLOOD COUNT 5.27 10^6/ul (4.70-6.10)
[2018-10-20 05:44] LABS: ALANINE AMINOTRANSFERASE 31 IU/L (13-69); ALBUMIN 3.3 g/dl (3.3-4.9); ALBUMIN/GLOBULIN RATIO 0.91; ALKALINE PHOSPHATASE 165 IU/L (42-121); ANION GAP 13 (5-13); ASPARTATE AMINO TRANSFERASE 56 IU/L (15-46); BILIRUBIN,INDIRECT 0.9 mg/dl (0-1.1); BILIRUBIN,TOTAL 0.9 mg/dl (0.2-1.3); BLOOD UREA NITROGEN 52 mg/dl (7-20); CALCIUM 9.5 mg/dl (8.4-10.2); CARBON DIOXIDE 30 mmol/L (21-31); CHLORIDE 92 mmol/L (97-110); CREATININE 1.83 mg/dl (0.61-1.24); Estimated GFR 39 mL/min (>60); GLUCOSE 121 mg/dl (70-220); POTASSIUM 4.6 mmol/L (3.5-5.1); SODIUM 135 mmol/L (135-144); TOTAL PROTEIN 6.9 g/dl (6.1-8.1)
[2018-10-20] MEDS: DOCUSATE SODIUM 100 MG CAP PO ×2 (09:55→21:08)
[2018-10-20] MEDS: BALSAM PERU/CASTOR OIL 60 GM TUBE TOP (09:55)
[2018-10-20] MEDS: SPIRONOLACTONE 25 MG TAB PO (09:55)
[2018-10-20] MEDS: FAMOTIDINE 20 MG TAB PO ×2 (09:55→21:08)
[2018-10-20] MEDS: ISOSORBIDE DINITRATE 10 MG TAB PO ×3 (09:55→21:10)
[2018-10-20] MEDS: ENOXAPARIN 100 MG/ML SYG SC (09:56)
[2018-10-20] MEDS: NICOTINE (21 MG/24 HR) PATCH TRANSDERM (10:02)
[2018-10-20 10:56] LABS: AADO2 Arterial 181.1 mmHg (7.0-24.0); Allen Test ACCEPTAB; Arterial Base Excess 7.1 mmol/L (-3.0-3); Arterial Blood Gas Oxygen Sat 98.5 mmHG (95.0-98.0); Arterial Fraction of Oxyhgb 97.1 % (93.0-99.0); Arterial HCO3 32.1 mmol/L (22.0-26.0); Arterial MetHb 0.4 % (0.0-1.5); Arterial pCO2 46.7 mmhg (35-45); Blood Gas IEPAP 15/5; Blood Gas PS 10; MODE MASK - BIPAP; Site Left Radial
[2018-10-20 11:36] LABS: LACTIC ACID 2.2 mmol/L (0.5-2.0)
[2018-10-20 12:23] LABS: MAGNESIUM 1.8 mg/dl (1.7-2.5)
[2018-10-21 04:40] LABS: ADD MAN DIFF? NO
[2018-10-21 04:45] LABS: BASOPHILS % 0.2 % (0.0-2.0); EOSINOPHILS # 0.1 10^3/ul (0.0-0.5); EOSINOPHILS % 0.7 % (0.0-7.0); HEMATOCRIT 41.1 % (42.0-52.0); HEMOGLOBIN 12.2 g/dl (14.0-18.0); LYMPHOCYTES # 0.7 10^3/ul (0.8-2.9); LYMPHOCYTES % 7.8 % (15.0-51.0); MEAN CORPUSCULAR HEMOGLOBIN 24.4 pg (29.0-33.0); MEAN CORPUSCULAR HGB CONC 29.7 g/dl (32.0-37.0); MEAN CORPUSCULAR VOLUME 82.2 fl (82.0-101.0); MEAN PLATELET VOLUME 9.5 fl (7.4-10.4); MONOCYTE # 0.9 10^3/ul (0.3-0.9); MONOCYTES % 9.5 % (0.0-11.0); NEUTROPHIL # 7.4 10^3/ul (1.6-7.5); PLATELET COUNT 332 10^3/UL (140-415); RED CELL DISTRIBUTION WIDTH 20.2 % (11.5-14.5)
[2018-10-21 04:45] LABS: WHITE BLOOD COUNT 9.2 10^3/ul (4.8-10.8)
[2018-10-21] MEDS: BUMETANIDE 1 MG INJ IV ×2 (05:08→18:49)
[2018-10-21 05:17] LABS: ALANINE AMINOTRANSFERASE 30 IU/L (13-69); ALBUMIN 3.1 g/dl (3.3-4.9); ALBUMIN/GLOBULIN RATIO 0.86; ALKALINE PHOSPHATASE 165 IU/L (42-121); ANION GAP 6 (5-13); ASPARTATE AMINO TRANSFERASE 44 IU/L (15-46); BILIRUBIN,INDIRECT 0.6 mg/dl (0-1.1); BILIRUBIN,TOTAL 0.6 mg/dl (0.2-1.3); BLOOD UREA NITROGEN 43 mg/dl (7-20); CALCIUM 9.3 mg/dl (8.4-10.2); CARBON DIOXIDE 36 mmol/L (21-31); CHLORIDE 94 mmol/L (97-110); CREATININE 1.11 mg/dl (0.61-1.24); Estimated GFR > 60 mL/min (>60); GLUCOSE 129 mg/dl (70-220); POTASSIUM 3.8 mmol/L (3.5-5.1); SODIUM 136 mmol/L (135-144); TOTAL PROTEIN 6.7 g/dl (6.1-8.1)
[2018-10-21] MEDS: IPRATROPIUM (NEB) 0.5 MG/2.5 ML AMP HHN ×3 (06:26→17:45)
[2018-10-21] MEDS: LEVALBUTEROL (NEB) 0.63 MG/3 ML AMP HHN ×4 (06:26→22:43)
[2018-10-21] MEDS: FAMOTIDINE 20 MG TAB PO ×2 (08:53→21:09)
[2018-10-21] MEDS: NICOTINE (21 MG/24 HR) PATCH TRANSDERM (08:53)
[2018-10-21] MEDS: DOCUSATE SODIUM 100 MG CAP PO ×2 (08:53→21:00)
[2018-10-21] MEDS: BALSAM PERU/CASTOR OIL 60 GM TUBE TOP (09:00)
[2018-10-21] MEDS: SPIRONOLACTONE 25 MG TAB PO (10:45)
[2018-10-21] MEDS: ISOSORBIDE DINITRATE 10 MG TAB PO ×3 (10:45→21:11)
[2018-10-21] MEDS: ENOXAPARIN 100 MG/ML SYG SC (10:47)
[2018-10-21] MEDS: MAGNESIUM SULFATE 2 GM/50 ML 50 ML IVPB (11:12)
[2018-10-21] MEDS: POTASSIUM CHLORIDE 100 ML IVPB (13:40)
[2018-10-21] MEDS: HYDROCODONE/APAP (5/325) TAB PO (23:49)
[2018-10-22 01:08] LABS: ANION GAP 9 (5-13); BLOOD UREA NITROGEN 34 mg/dl (7-20); CALCIUM 8.5 mg/dl (8.4-10.2); CARBON DIOXIDE 34 mmol/L (21-31); CHLORIDE 92 mmol/L (97-110); CREATININE 0.93 mg/dl (0.61-1.24); Estimated GFR > 60 mL/min (>60); GLUCOSE 144 mg/dl (70-220); SODIUM 135 mmol/L (135-144)
[2018-10-22 01:28] LABS: MAGNESIUM 1.8 mg/dl (1.7-2.5)
[2018-10-22] MEDS: MAGNESIUM SULFATE 2 GM/50 ML 50 ML IVPB (02:09)
[2018-10-22] MEDS: LORAZEPAM 2 MG INJ IV (04:07)
[2018-10-22] MEDS: BUMETANIDE 1 MG INJ IV ×2 (05:25→17:02)
[2018-10-22] MEDS: LEVALBUTEROL (NEB) 0.63 MG/3 ML AMP HHN ×3 (08:24→19:38)
[2018-10-22] MEDS: IPRATROPIUM (NEB) 0.5 MG/2.5 ML AMP HHN ×2 (08:24→12:48)
[2018-10-22] MEDS: DOCUSATE SODIUM 100 MG CAP PO ×2 (08:37→20:30)
[2018-10-22] MEDS: FAMOTIDINE 20 MG TAB PO ×2 (08:38→20:30)
[2018-10-22] MEDS: ISOSORBIDE DINITRATE 10 MG TAB PO ×3 (08:38→20:32)
[2018-10-22] MEDS: SPIRONOLACTONE 25 MG TAB PO (08:39)
[2018-10-22] MEDS: NICOTINE (21 MG/24 HR) PATCH TRANSDERM (08:39)
[2018-10-22] MEDS: BALSAM PERU/CASTOR OIL 60 GM TUBE TOP (08:40)
[2018-10-22] MEDS: ENOXAPARIN 100 MG/ML SYG SC ×2 (08:47→20:45)
[2018-10-22] MEDS: POTASSIUM CHLORIDE (SR) 20 MEQ TAB PO (17:02)
[2018-10-22 18:19] LABS: MAGNESIUM 1.9 mg/dl (1.7-2.5)
[2018-10-23] MEDS: LORAZEPAM 2 MG INJ IV ×5 (00:26→21:28)
[2018-10-23 01:49] LABS: Arterial Base Excess 4.6 mmol/L (-3.0-3); Arterial Blood Gas Oxygen Sat 97.1 mmHG (95.0-98.0); Arterial COHb 0.9 % (0.0-3.0); Arterial Fraction of Oxyhgb 95.9 % (93.0-99.0); Arterial HCO3 29.8 mmol/L (22.0-26.0); Arterial MetHb 0.3 % (0.0-1.5); Arterial pCO2 46.3 mmhg (35-45); MODE ROOM AIR; Site Right Brachial
[2018-10-23] MEDS: BUMETANIDE 1 MG INJ IV ×3 (01:57→17:10)
[2018-10-23] MEDS: QUETIAPINE 25 MG TAB PO (04:51)
[2018-10-23] MEDS: DIPHENHYDRAMINE 50 MG INJ IV (06:38)
[2018-10-23] MEDS: BALSAM PERU/CASTOR OIL 60 GM TUBE TOP (08:40)
[2018-10-23] MEDS: LEVALBUTEROL (NEB) 0.63 MG/3 ML AMP HHN (08:40)
[2018-10-23] MEDS: IPRATROPIUM (NEB) 0.5 MG/2.5 ML AMP HHN (08:40)
[2018-10-23] MEDS: NICOTINE (21 MG/24 HR) PATCH TRANSDERM (08:53)
[2018-10-23] MEDS: DOCUSATE SODIUM 100 MG CAP PO ×2 (09:00→21:00)
[2018-10-23] MEDS: SPIRONOLACTONE 25 MG TAB PO (09:00)
[2018-10-23] MEDS: ISOSORBIDE DINITRATE 10 MG TAB PO ×3 (09:00→21:00)
[2018-10-23] MEDS: FAMOTIDINE 20 MG TAB PO ×2 (09:00→21:00)
[2018-10-23] MEDS: LISINOPRIL 5 MG TAB PO (09:00)
[2018-10-23] MEDS: ENOXAPARIN 100 MG/ML SYG SC ×2 (09:01→22:39)
[2018-10-23 10:16] LABS: ADD MAN DIFF? NO
[2018-10-23 10:19] LABS: ABNORMAL IP MESSAGE 1; BASOPHIL # 0.1 10^3/ul (0.0-0.1); BASOPHILS % 0.5 % (0.0-2.0); EOSINOPHILS # 0.1 10^3/ul (0.0-0.5); EOSINOPHILS % 0.5 % (0.0-7.0); HEMOGLOBIN 13.6 g/dl (14.0-18.0); LYMPHOCYTES # 1.4 10^3/ul (0.8-2.9); LYMPHOCYTES % 12.7 % (15.0-51.0); MEAN CORPUSCULAR HEMOGLOBIN 24.1 pg (29.0-33.0); MEAN CORPUSCULAR HGB CONC 28.3 g/dl (32.0-37.0); MEAN PLATELET VOLUME 9.9 fl (7.4-10.4); MONOCYTE # 1.5 10^3/ul (0.3-0.9); MONOCYTES % 13.9 % (0.0-11.0); NEUTROPHIL # 7.8 10^3/ul (1.6-7.5); NEUTROPHILS % 71.7 % (39.0-77.0); PLATELET COUNT 357 10^3/UL (140-415); POSITIVE DIFF @See below; RED BLOOD COUNT 5.65 10^6/ul (4.70-6.10); RED CELL DISTRIBUTION WIDTH 19.9 % (11.5-14.5)
[2018-10-23 10:19] LABS: WHITE BLOOD COUNT 10.9 10^3/ul (4.8-10.8)
[2018-10-23 10:50] LABS: ALANINE AMINOTRANSFERASE 26 IU/L (13-69); ALBUMIN 3.7 g/dl (3.3-4.9); ALBUMIN/GLOBULIN RATIO 0.97; ALKALINE PHOSPHATASE 206 IU/L (42-121); ANION GAP 14 (5-13); ASPARTATE AMINO TRANSFERASE 42 IU/L (15-46); BILIRUBIN,INDIRECT 0.8 mg/dl (0-1.1); BILIRUBIN,TOTAL 0.8 mg/dl (0.2-1.3); BLOOD UREA NITROGEN 31 mg/dl (7-20); CALCIUM 9.4 mg/dl (8.4-10.2); CARBON DIOXIDE 28 mmol/L (21-31); CHLORIDE 92 mmol/L (97-110); CREATININE 0.85 mg/dl (0.61-1.24); Estimated GFR > 60 mL/min (>60); GLUCOSE 91 mg/dl (70-220); PHOSPHORUS 4.2 mg/dl (2.5-4.9); POTASSIUM 5.7 mmol/L (3.5-5.1); SODIUM 134 mmol/L (135-144); TOTAL PROTEIN 7.5 g/dl (6.1-8.1)
[2018-10-23 11:27] LABS: BARBITURATES Negative (NEGATIVE); BENZODIAZEPINES Negative (NEGATIVE); CANNABINOIDS Positive (NEGATIVE); COCAINE Negative (NEGATIVE); OPIATES Negative (NEGATIVE)
[2018-10-23 11:31] LABS: AMPHETAMINE/METHAMPHETAMINE Positive (NEGATIVE)
[2018-10-23 12:27] LABS: ANION GAP 11 (5-13); BLOOD UREA NITROGEN 31 mg/dl (7-20); CALCIUM 9.4 mg/dl (8.4-10.2); CARBON DIOXIDE 33 mmol/L (21-31); CHLORIDE 93 mmol/L (97-110); Estimated GFR > 60 mL/min (>60); GLUCOSE 96 mg/dl (70-220); POTASSIUM 4.9 mmol/L (3.5-5.1); SODIUM 137 mmol/L (135-144)
[2018-10-23] MEDS ORDERED: METOPROLOL 5 MG INJ IV (15:00)
[2018-10-23] MEDS: DIGOXIN 500 MCG INJ IV (15:41)
[2018-10-23] MEDS ORDERED: LORAZEPAM 2 MG INJ (21:21)
[2018-10-23] MEDS: HALOPERIDOL 5 MG INJ IM (21:30)
[2018-10-24] MEDS: LORAZEPAM 2 MG INJ IV ×2 (02:43→06:13)
[2018-10-24] MEDS: BUMETANIDE 1 MG INJ IV ×2 (05:41→17:55)
[2018-10-24 08:35] LABS: ADD MAN DIFF? NO
[2018-10-24 08:46] LABS: ABNORMAL IP MESSAGE 1; BASOPHIL # 0.1 10^3/ul (0.0-0.1); BASOPHILS % 0.5 % (0.0-2.0); EOSINOPHILS # 0.1 10^3/ul (0.0-0.5); EOSINOPHILS % 1.3 % (0.0-7.0); HEMATOCRIT 47.7 % (42.0-52.0); HEMOGLOBIN 13.6 g/dl (14.0-18.0); LYMPHOCYTES # 1.1 10^3/ul (0.8-2.9); LYMPHOCYTES % 11.3 % (15.0-51.0); MEAN CORPUSCULAR HEMOGLOBIN 23.9 pg (29.0-33.0); MEAN CORPUSCULAR HGB CONC 28.5 g/dl (32.0-37.0); MEAN PLATELET VOLUME 10.1 fl (7.4-10.4); MONOCYTE # 1.6 10^3/ul (0.3-0.9); MONOCYTES % 16.6 % (0.0-11.0); NEUTROPHIL # 6.9 10^3/ul (1.6-7.5); NEUTROPHILS % 69.6 % (39.0-77.0); POSITIVE DIFF @See below; RED BLOOD COUNT 5.68 10^6/ul (4.70-6.10); RED CELL DISTRIBUTION WIDTH 19.9 % (11.5-14.5)
[2018-10-24 08:46] LABS: WHITE BLOOD COUNT 9.8 10^3/ul (4.8-10.8)
[2018-10-24 08:56] LABS: PLATELET COUNT 260 10^3/UL (140-415)
[2018-10-24 09:10] LABS: ANION GAP 8 (5-13); BLOOD UREA NITROGEN 27 mg/dl (7-20); CALCIUM 9.2 mg/dl (8.4-10.2); CARBON DIOXIDE 38 mmol/L (21-31); CHLORIDE 95 mmol/L (97-110); CREATININE 0.67 mg/dl (0.61-1.24); Estimated GFR > 60 mL/min (>60); GLUCOSE 78 mg/dl (70-220); MAGNESIUM 1.8 mg/dl (1.7-2.5); PHOSPHORUS 3.1 mg/dl (2.5-4.9); POTASSIUM 3.9 mmol/L (3.5-5.1); SODIUM 141 mmol/L (135-144)
[2018-10-24] MEDS: NICOTINE (21 MG/24 HR) PATCH TRANSDERM (09:43)
[2018-10-24] MEDS: ENOXAPARIN 100 MG/ML SYG SC ×2 (09:47→20:23)
[2018-10-24] MEDS: SPIRONOLACTONE 25 MG TAB PO (11:21)
[2018-10-24] MEDS: DOCUSATE SODIUM 100 MG CAP PO ×2 (11:21→21:00)
[2018-10-24] MEDS: ISOSORBIDE DINITRATE 10 MG TAB PO ×3 (11:22→21:00)
[2018-10-24] MEDS: FAMOTIDINE 20 MG TAB PO ×2 (11:22→21:00)
[2018-10-24] MEDS: LISINOPRIL 5 MG TAB PO (11:23)
[2018-10-24] MEDS: BALSAM PERU/CASTOR OIL 60 GM TUBE TOP ×2 (11:28→12:28)
[2018-10-25] MEDS: HYDROCODONE/APAP (5/325) TAB PO ×2 (00:28→17:01)
[2018-10-25] MEDS: BUMETANIDE 1 MG INJ IV ×2 (05:58→18:25)
[2018-10-25] MEDS: NICOTINE (21 MG/24 HR) PATCH TRANSDERM (08:27)
[2018-10-25] MEDS: DOCUSATE SODIUM 100 MG CAP PO ×2 (08:27→20:22)
[2018-10-25] MEDS: FAMOTIDINE 20 MG TAB PO ×2 (08:28→20:22)
[2018-10-25] MEDS: LISINOPRIL 5 MG TAB PO (08:28)
[2018-10-25] MEDS: SPIRONOLACTONE 25 MG TAB PO (08:28)
[2018-10-25] MEDS: ISOSORBIDE DINITRATE 10 MG TAB PO ×3 (08:28→20:22)
[2018-10-25] MEDS: BALSAM PERU/CASTOR OIL 60 GM TUBE TOP (08:30)
[2018-10-25] MEDS: ENOXAPARIN 100 MG/ML SYG SC ×2 (08:33→20:23)
[2018-10-25 09:01] LABS: ADD MAN DIFF? NO
[2018-10-25 09:04] LABS: ABNORMAL IP MESSAGE 1; BASOPHILS % 0.3 % (0.0-2.0); EOSINOPHILS # 0.2 10^3/ul (0.0-0.5); EOSINOPHILS % 1.2 % (0.0-7.0); HEMATOCRIT 55.5 % (42.0-52.0); HEMOGLOBIN 15.4 g/dl (14.0-18.0); LYMPHOCYTES # 1.1 10^3/ul (0.8-2.9); LYMPHOCYTES % 9.1 % (15.0-51.0); MEAN CORPUSCULAR HEMOGLOBIN 23.8 pg (29.0-33.0); MEAN CORPUSCULAR HGB CONC 27.7 g/dl (32.0-37.0); MEAN CORPUSCULAR VOLUME 85.9 fl (82.0-101.0); MEAN PLATELET VOLUME 9.4 fl (7.4-10.4); MONOCYTE # 1.6 10^3/ul (0.3-0.9); MONOCYTES % 13.5 % (0.0-11.0); NEUTROPHIL # 9.1 10^3/ul (1.6-7.5); NEUTROPHILS % 75.3 % (39.0-77.0); PLATELET COUNT 304 10^3/UL (140-415); POSITIVE DIFF @See below; RED BLOOD COUNT 6.46 10^6/ul (4.70-6.10); RED CELL DISTRIBUTION WIDTH 20.4 % (11.5-14.5)
[2018-10-25 09:30] LABS: PHOSPHORUS 3.6 mg/dl (2.5-4.9)
[2018-10-25 09:30] LABS: MAGNESIUM 1.6 mg/dl (1.7-2.5)
[2018-10-25 09:37] LABS: ANION GAP 5 (5-13); BLOOD UREA NITROGEN 22 mg/dl (7-20); CALCIUM 9.2 mg/dl (8.4-10.2); CARBON DIOXIDE 39 mmol/L (21-31); CHLORIDE 95 mmol/L (97-110); CREATININE 0.66 mg/dl (0.61-1.24); Estimated GFR > 60 mL/min (>60); GLUCOSE 83 mg/dl (70-220); POTASSIUM 4.5 mmol/L (3.5-5.1); SODIUM 139 mmol/L (135-144)
[2018-10-25] MEDS: MAGNESIUM SULFATE 1 GM/D5W 100 ML IVPB (13:12)
[2018-10-25] MEDS: IPRATROPIUM (NEB) 0.5 MG/2.5 ML AMP HHN (13:58)
[2018-10-25] MEDS: LEVALBUTEROL (NEB) 0.63 MG/3 ML AMP HHN (14:00)
[2018-10-25] MEDS: LORAZEPAM 2 MG INJ IV (23:33)
[2018-10-26] MEDS: BUMETANIDE 1 MG INJ IV (05:18)
[2018-10-26] MEDS: IPRATROPIUM (NEB) 0.5 MG/2.5 ML AMP HHN ×2 (05:45→11:51)
[2018-10-26] MEDS: LEVALBUTEROL (NEB) 0.63 MG/3 ML AMP HHN ×2 (05:45→11:51)
[2018-10-26] MEDS: DOCUSATE SODIUM 100 MG CAP PO (08:05)
[2018-10-26] MEDS: HYDROCODONE/APAP (5/325) TAB PO (08:05)
[2018-10-26] MEDS: ISOSORBIDE DINITRATE 10 MG TAB PO (08:06)
[2018-10-26] MEDS: FAMOTIDINE 20 MG TAB PO (08:07)
[2018-10-26] MEDS: SPIRONOLACTONE 25 MG TAB PO (08:07)
[2018-10-26] MEDS: LISINOPRIL 5 MG TAB PO (08:08)
[2018-10-26] MEDS: NICOTINE (21 MG/24 HR) PATCH TRANSDERM (08:09)
[2018-10-26] MEDS: ENOXAPARIN 100 MG/ML SYG SC (08:15)
[2018-10-26] MEDS: BALSAM PERU/CASTOR OIL 60 GM TUBE TOP (09:00)
[2018-10-26 09:55] LABS: ALANINE AMINOTRANSFERASE 23 IU/L (13-69); ALBUMIN 3.1 g/dl (3.3-4.9); ALBUMIN/GLOBULIN RATIO 0.91; ALKALINE PHOSPHATASE 167 IU/L (42-121); ANION GAP 5 (5-13); ASPARTATE AMINO TRANSFERASE 28 IU/L (15-46); BILIRUBIN,INDIRECT 0.5 mg/dl (0-1.1); BILIRUBIN,TOTAL 0.5 mg/dl (0.2-1.3); BLOOD UREA NITROGEN 22 mg/dl (7-20); CALCIUM 8.5 mg/dl (8.4-10.2); CARBON DIOXIDE 39 mmol/L (21-31); CHLORIDE 91 mmol/L (97-110); CREATININE 0.75 mg/dl (0.61-1.24); Estimated GFR > 60 mL/min (>60); GLUCOSE 147 mg/dl (70-220); POTASSIUM 3.8 mmol/L (3.5-5.1); SODIUM 135 mmol/L (135-144); TOTAL PROTEIN 6.5 g/dl (6.1-8.1)
[2018-10-26 09:57] LABS: MAGNESIUM 1.5 mg/dl (1.7-2.5)
[2018-10-26] MEDS: MAGNESIUM OXIDE 400 MG TAB PO (11:22)
== END 2018-10-26 12:30 | disposition home or self-care (01) | DRG 291 ==
LOC: TEL 10-23 02:33 → 5EC 10-25 15:17 → 6WM 20:25 → ICU 10-19 18:45 → TEL 10-21 19:08
PROC: 0W9G3ZZ Drainage of Peritoneal Cavity, Percutaneous Approach (ICD-10-PCS; principal; 2018-10-19)
PROC: 5A09457 Assistance with Respiratory Ventilation, 24-96 Consecutive Hours, Continuous Positive Airway Pressure (ICD-10-PCS; 2018-10-19)
DX: I13.0 Hypertensive heart and chronic kidney disease with heart failure and stage 1 through stage 4 chronic kidney disease, or unspecified chronic kidney disease (principal); I50.23 Acute on chronic systolic (congestive) heart failure; N17.9 Acute kidney failure, unspecified; R18.8 Other ascites; I42.9 Cardiomyopathy, unspecified; K74.69 Other cirrhosis of liver; B19.20 Unspecified viral hepatitis C without hepatic coma; N18.9 Chronic kidney disease, unspecified; J44.9 Chronic obstructive pulmonary disease, unspecified; F15.90 Other stimulant use, unspecified, uncomplicated; E78.5 Hyperlipidemia, unspecified; E87.70 Fluid overload, unspecified; G47.33 Obstructive sleep apnea (adult) (pediatric); Z79.82 Long term (current) use of aspirin
CPT/HCPCS: 36600; 70450; 71045; 71250; 76705; 80048; 80053; 80307; 82140; 82803; 82962; 83605; 83735; 83880; 84100; 85025; 85610; 85730; 87081; 92526; 92610; 94640; 94660; 94664; 97162; 97164